=== PATIENT | male | born 1945 | race Asian ===

== ENCOUNTER 2017-02-05 13:35 | Inpatient (IN) | payer MEDICARE, OTHER ==
[~2017-02-05] VITALS: Ht 177.8 cm; Wt 56.7 kg
--- NOTE | 2017-02-05 13:35 | Emergency Room Report ---
History of Present Illness General Chief Complaint: Generalized Weakness Source: EMS Present Illness HPI Is a 71-year-old male who presented after increased generalized weakness. She gradual onset of symptoms. Patient reportedly had decreased by mouth intake. Patient prior history of cancer. Patient brought in by EMS from home. 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 The patient recent finished of round of chemotherapy. Patient was a having had decreased oral intake as well as some bleeding from his mouth. He had not been reportedly having any fever. Cancer have been noted to be metastasized to his bone. He is not known to have any liver metastases. The patient had last been hospitalized for [facility]. The patient had reported having decreased urine output Allergies: Coded Allergies: No Known Allergies (Unverified , 02/05/17) Patient History Past Medical History: see triage record Reviewed Nursing Documentation: PMH: Agreed, PSxH: Agreed Nursing Documentation-PMH Past Medical History: No History, Except For Hx Hypertension: Yes Hx COPD: No - ANEMIA Hx Cancer: Yes Review of Systems All Other Systems: negative except mentioned in HPI Physical Exam Vital Signs Date Time Temp Pulse Resp B/P (MAP) Pulse Ox O2 Delivery O2 Flow Rate FiO2 02/05/17 13:21 100.9 89 20 105/53 100 Room Air Sp02 EP Interpretation: reviewed, normal General Appearance: normal inspection, well appearing, no apparent distress, alert, Chronically Ill Head: atraumatic ENT: hearing grossly normal, normal voice, other - mouth ulcers, mass to right side of oropharynx. 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 Differential diagnosis included was not limited to anemia, urinary tract infection, electrolyte abnormality, hypothyroidism, myocardial infarction, myasthenia gravis, dehydration, among others. Because of complexity of patient's case laboratory testing and imaging studies were ordered.Laboratory testing showed evidence of elevation of BUN/ creatinine. This was noted also be somewhat anemic. The patient was having some mild bleeding from oropharynx. The patient will require further checks of his blood count as well as a further IV hydration. Dr. Mahajan was contacted for inpatient management due to complexity of medical condition and capitated physician. Labs Test 02/05/17 13:50 02/05/17 14:10 Urine Color Pale yellow Urine Appearance Clear Urine pH 7 (4.5-8.0) Urine Specific [place] 1.005 (1.005-1.035) Urine Protein Negative (NEGATIVE) Urine Glucose (UA) Negative (NEGATIVE) Urine Ketones Negative (NEGATIVE) Urine Occult Blood Negative (NEGATIVE) Urine Nitrite Negative (NEGATIVE) Urine Bilirubin Negative (NEGATIVE) Urine Urobilinogen Normal MG/DL (0.0-1.0) Urine Leukocyte Esterase Negative (NEGATIVE) White Blood Count 6.3 K/UL (4.8-10.8) Red Blood Count 3.23 M/UL (4.70-6.10) Hemoglobin 9.5 G/DL (14.2-18.0) Hematocrit 29.3 % (42.0-52.0) Mean Corpuscular Volume 91 FL (80-99) Mean Corpuscular Hemoglobin 29.5 PG (27.0-31.0) Mean Corpuscular Hemoglobin Concent 32.5 G/DL (32.0-36.0) Red Cell Distribution Width 16.9 % (11.6-14.8) Platelet Count 237 K/UL (150-450) Mean Platelet Volume 6.4 FL (6.5-10.1) Neutrophils (%) (Auto) % (45.0-75.0) Lymphocytes (%) (Auto) % (20.0-45.0) Monocytes (%) (Auto) % (1.0-10.0) Eosinophils (%) (Auto) % (0.0-3.0) Basophils (%) (Auto) % (0.0-2.0) Differential Total Cells Counted 100 Neutrophils % (Manual) 82 % (45-75) Lymphocytes % (Manual) 5 % (20-45) Monocytes % (Manual) 5 % (1-10) Eosinophils % (Manual) 0 % (0-3) Basophils % (Manual) 0 % (0-2) Band Neutrophils 8 % (0-8) Platelet Estimate Adequate Platelet Morphology Normal Anisocytosis 1+ Prothrombin Time 10.1 SEC (9.30-11.50) Prothromb Time International Ratio 1.0 (0.9-1.1) Activated Partial Thromboplast Time 33 SEC (23-33) Sodium Level 132 MMOL/L (136-145) Potassium Level 4.8 MMOL/L (3.5-5.1) Chloride Level 101 MMOL/L (98-107) Carbon Dioxide Level 21 MMOL/L (21-32) Anion Gap 10 mmol/L (5-15) Blood Urea Nitrogen 25 mg/dL (7-18) Creatinine 1.0 MG/DL (0.55-1.30) Estimat Glomerular Filtration Rate mL/min (>60) Glucose Level 104 MG/DL (74-106) Lactic Acid Level 1.00 mmol/L (0.66-2.22) Calcium Level 7.3 MG/DL (8.5-10.1) Total Bilirubin 0.6 MG/DL (0.2-1.0) Aspartate Amino Transf (AST/SGOT) 26 U/L (15-37) Alanine Aminotransferase (ALT/SGPT) 12 U/L (12-78) Alkaline Phosphatase 149 U/L (46-116) Total Creatine Kinase 86 U/L (26-308) Creatine Kinase MB 1.1 NG/ML (0.0-3.6) Creatine Kinase MB Relative Index 1.2 Troponin I 0.011 ng/mL (0.000-0.056) Total Protein 7.8 G/DL (6.4-8.2) Albumin 2.8 G/DL (3.4-5.0) Globulin 5.0 g/dL EKG Diagnostic Results Rate: normal - 87 Rhythm: NSR ST Segments: no acute changes ASA given to the pt in ED: No Rhythm Strip Diag. Results EP Interpretation: yes Rhythm: NSR - 86, no PVC's, no ectopy Chest X-Ray Diagnostic Results Chest X-Ray Diagnostic Results : Chest X-Ray Ordered: Yes # of Views/Limited/Complete: 1 View Indication: Shortness of Breath EP Interpretation: Yes Interpretation: no effusion, no pneumothorax, no acute cardiopulmonary disease, other - right lung infiltrate Impression: Other - right lung infiltrate Electronically Signed by: Electronically signed by Dr. Juancho Miller M.D. Last Vital Signs Date Time Temp Pulse Resp B/P (MAP) Pulse Ox O2 Delivery O2 Flow Rate FiO2 02/05/17 13:21 100.9 89 20 105/53 100 Room Air Status: unchanged Disposition: ADMITTED INPATIENT Juancho Miller Feb 05, 2017 13:35
[2017-02-05] MEDS ORDERED: Lidocaine 2% Visc 15ml soln ORAL ONE (13:45)
[2017-02-05] MEDS ORDERED: DiphenhydrAMINE 25mg/10ml Elixir ORAL ONE (13:45)
[2017-02-05] MEDS ORDERED: Cefepime HCl 1 GM in NS 55 ML IV SCH (13:45)
[2017-02-05] MEDS ORDERED: LOSARTAN-HCTZ1 EACH ORAL (13:45)
[2017-02-05] MEDS ORDERED: MORPHINE IR15 MG ORAL (13:45)
[2017-02-05 13:50] VITALS: BP 105/52
[2017-02-05 14:34] LABS: MEAN CORPUSCULAR HEMOGLOBIN 29.5 PG (27.0-31.0); MEAN CORPUSCULAR HGB CONC 32.5 G/DL (32.0-36.0); MEAN CORPUSCULAR VOLUME 91 FL (80-99); MEAN PLATELET VOLUME 6.4 FL (6.5-10.1); PLATELET COUNT 237 K/UL (150-450); RED BLOOD COUNT 3.23 M/UL (4.70-6.10); RED CELL DISTRIBUTION WIDTH 16.9 % (11.6-14.8); WHITE BLOOD COUNT 6.3 K/UL (4.8-10.8)
[2017-02-05] MEDS ORDERED: Cefepime 1gm vial ONE (14:37)
[2017-02-05] MEDS ORDERED: LACTULOSE10 GM/153 PO (14:37)
[2017-02-05] MEDS ORDERED: HYDROCODON-ACE1 EA13 ORAL (14:37)
[2017-02-05] MEDS ORDERED: MOM30 ML ORAL (14:38)
[2017-02-05 14:51] LABS: PROTHROMBIN TIME 10.1 SEC (9.30-11.50)
[2017-02-05] MEDS ORDERED: IRON159 MG PO (14:54)
[2017-02-05] MEDS ORDERED: MILK OF MA400 MG/51 ORAL (14:54)
[2017-02-05] MEDS ORDERED: LD2JL30 TOPIC (14:54)
[2017-02-05] MEDS ORDERED: CALCIUM500 M3 PO (14:54)
[2017-02-05 15:02] LABS: ALANINE AMINOTRANSFERASE 12 U/L (12-78); ANION GAP 10 mmol/L (5-15); ASPARTATE AMINO TRANSFERASE 26 U/L (15-37); CARBON DIOXIDE 21 MMOL/L (21-32); CHLORIDE 101 MMOL/L (98-107); CKMB 1.1 NG/ML (0.0-3.6); POTASSIUM 4.8 MMOL/L (3.5-5.1); SODIUM 132 MMOL/L (136-145); TOTAL PROTEIN 7.8 G/DL (6.4-8.2)
[2017-02-05 15:09] LABS: CALCIUM 7.3 MG/DL (8.5-10.1)
[2017-02-05 15:37] LABS: APPEARANCE,URINE CLEAR; KETONES,URINE NEGATIVE (NEGATIVE); LEUKOCYTE ESTERASE ,URINE NEGATIVE (NEGATIVE); NITRITE,URINE NEGATIVE (NEGATIVE); PH,URINE 7 (4.5-8.0); PROTEIN,URINE NEGATIVE (NEGATIVE); UROBILINOGEN,URINE NORMAL MG/DL (0.0-1.0)
[2017-02-05 15:46] LABS: ANISOCYTOSIS 1+; BAND NEUTROPHILS % (MANUAL) 8 % (0-8); BASOPHILS % (MANUAL) 0 % (0-2); EOSINOPHILS % (MANUAL) 0 % (0-3); LYMPHOCYTES % (MANUAL) 5 % (20-45); NEUTROPHILS % (MANUAL) 82 % (45-75); PLATELET ESTIMATE ADEQUATE; PLATELET MORPHOLOGY NORMAL; TOTAL CELLS COUNTED 100
[2017-02-05 16:50] VITALS: BP 115/55
[2017-02-05] MEDS ORDERED: D5 1/2NS 1,000 ML IV SCH (17:36)
[2017-02-05] MEDS ORDERED: LORazepam Inj 2mg/ml 1ml IV PRN (17:45)
[2017-02-05] MEDS ORDERED: Morphine Sulfate 2mg/ml Inj IVP PRN (17:45)
[2017-02-05 20:00] VITALS: BP 97/53
[2017-02-05] MEDS: Heparin 5000 units/ml inj SUBQ SCH (20:34)
--- NOTE | 2017-02-05 22:13 | History and Physical ---
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 He just finished of round of chemotherapy. He also has decreased urine output. He had an episode of fever in Er and was noticed to have hyponatremia. He is admitted for further work up. Allergies: Coded Allergies: No Known Allergies (Unverified , 02/05/17) Medication History Scheduled Hydrocodone Bit/Acetaminophen 10-325* (Hydrocodon-Acetaminophn 10-325*), 1 TAB ORAL Q6H, (Reported) Lidocaine HCL 2% Jelly* (Lidocaine Jelly 2%*), 5 ML TOPIC DAILY, (Reported) Losartan/Hydrochlorothiazide (Losartan-Hctz 100-12.5 Mg Tab), 1 TAB ORAL DAILY, (Reported) Magnesium Hydroxide (Milk of Magnesia), 30 ML ORAL DAILY, (Reported) Magnesium Hydroxide* (Milk Of Magnesia*), 30 ML ORAL DAILY, (Reported) Scheduled PRN Morphine HCl (Morphine Sulfate ER), 30 MG ORAL Q6H PRN for For Pain, (Reported) Miscellaneous Medications Calcium Carbonate (Calcium), 500 MG PO, (Reported) Ferrous Sulfate, Dried (Iron), 159 MG PO, (Reported) Lactulose (Lactulose), 10 GM PO, (Reported) Patient History Healthcare decision maker N Resuscitation status Advanced Directive on File Past Medical/Surgical History Past Medical/Surgical History: (1) Metastatic cancer (2) History of hypertension Review of Systems Constitutional: Reports: fever, malaise Physical Exam General Appearance: cachetic Lines, tubes and drains: peripheral HEENT: normocephalic, atraumatic Neck: non-tender, normal alignment Respiratory/Chest: chest wall non-tender Breasts: no masses Abdomen: normal bowel sounds Genitourinary/Rectal: normal genital exam, normal prostate exam Last 24 Hour Vital Signs Date Time Temp Pulse Resp B/P (MAP) Pulse Ox O2 Delivery O2 Flow Rate FiO2 02/05/17 20:00 90 02/05/17 20:00 99.7 91 18 97/53 97 Room Air 02/05/17 17:10 99.3 88 18 115/55 100 Room Air 02/05/17 16:50 88 18 115/55 100 Room Air 02/05/17 13:50 99.3 89 18 105/52 100 Room Air 02/05/17 13:21 100.9 89 20 105/53 100 Room Air Intake and Output 02/05/17 02/06/17 19:00 07:00 Intake Total 405 ml 100 ml Output Total 300 ml Balance 105 ml 100 ml Intake Oral 200 ml IV Total 205 ml 100 ml Output Urine Total 300 ml Laboratory Tests Test 02/05/17 13:50 02/05/17 14:10 Urine Color Pale yellow Urine Appearance Clear Urine pH 7 (4.5-8.0) Urine Specific [place] 1.005 (1.005-1.035) Urine Protein Negative (NEGATIVE) Urine Glucose (UA) Negative (NEGATIVE) Urine Ketones Negative (NEGATIVE) Urine Occult Blood Negative (NEGATIVE) Urine Nitrite Negative (NEGATIVE) Urine Bilirubin Negative (NEGATIVE) Urine Urobilinogen Normal MG/DL (0.0-1.0) Urine Leukocyte Esterase Negative (NEGATIVE) White Blood Count 6.3 K/UL (4.8-10.8) Red Blood Count 3.23 M/UL (4.70-6.10) L Hemoglobin 9.5 G/DL (14.2-18.0) L Hematocrit 29.3 % (42.0-52.0) L Mean Corpuscular Volume 91 FL (80-99) Mean Corpuscular Hemoglobin 29.5 PG (27.0-31.0) Mean Corpuscular Hemoglobin Concent 32.5 G/DL (32.0-36.0) Red Cell Distribution Width 16.9 % (11.6-14.8) H Platelet Count 237 K/UL (150-450) Mean Platelet Volume 6.4 FL (6.5-10.1) L Neutrophils (%) (Auto) % (45.0-75.0) Lymphocytes (%) (Auto) % (20.0-45.0) Monocytes (%) (Auto) % (1.0-10.0) Eosinophils (%) (Auto) % (0.0-3.0) Basophils (%) (Auto) % (0.0-2.0) Differential Total Cells Counted 100 Neutrophils % (Manual) 82 % (45-75) H Lymphocytes % (Manual) 5 % (20-45) L Monocytes % (Manual) 5 % (1-10) Eosinophils % (Manual) 0 % (0-3) Basophils % (Manual) 0 % (0-2) Band Neutrophils 8 % (0-8) Platelet Estimate Adequate Platelet Morphology Normal Anisocytosis 1+ Prothrombin Time 10.1 SEC (9.30-11.50) Prothromb Time International Ratio 1.0 (0.9-1.1) Activated Partial Thromboplast Time 33 SEC (23-33) Sodium Level 132 MMOL/L (136-145) L Potassium Level 4.8 MMOL/L (3.5-5.1) Chloride Level 101 MMOL/L (98-107) Carbon Dioxide Level 21 MMOL/L (21-32) Anion Gap 10 mmol/L (5-15) Blood Urea Nitrogen 25 mg/dL (7-18) H Creatinine 1.0 MG/DL (0.55-1.30) Estimat Glomerular Filtration Rate mL/min (>60) Glucose Level 104 MG/DL (74-106) Lactic Acid Level 1.00 mmol/L (0.66-2.22) Calcium Level 7.3 MG/DL (8.5-10.1) L Total Bilirubin 0.6 MG/DL (0.2-1.0) Aspartate Amino Transf (AST/SGOT) 26 U/L (15-37) Alanine Aminotransferase (ALT/SGPT) 12 U/L (12-78) Alkaline Phosphatase 149 U/L (46-116) H Total Creatine Kinase 86 U/L (26-308) Creatine Kinase MB 1.1 NG/ML (0.0-3.6) Creatine Kinase MB Relative Index 1.2 Troponin I 0.011 ng/mL (0.000-0.056) Total Protein 7.8 G/DL (6.4-8.2) Albumin 2.8 G/DL (3.4-5.0) L Globulin 5.0 g/dL Height (Feet): 5 Height (Inches): 10.00 Weight (Pounds): 125 Medications Current Medications Medications (Trade) Dose Ordered Sig/Christopher Route PRN Reason Start Time Stop Time Status Last Admin Dose Admin Dextrose (Dextrose 50%) STAT PRN IV Hypoglycemia 02/05/17 17:45 03/07/17 17:44 Dextrose/Sodium Chloride 1,000 ml @ 50 mls/hr Q20H IV 02/05/17 17:36 03/07/17 17:35 02/05/17 17:36 Heparin Sodium (Porcine) (Heparin 5000 units/ml) 5,000 units EVERY 12 HOURS SUBQ 02/05/17 21:00 03/07/17 20:59 02/05/17 20:34 Lorazepam (Ativan 2mg/ml 1ml) 0.5 mg Q4H PRN IV For Anxiety 02/05/17 17:45 02/12/17 17:44 Morphine Sulfate (Morphine Sulfate) 1 mg Q4H PRN IVP PAIN 4-10 02/05/17 17:45 02/12/17 17:44 Ondansetron HCl (Zofran) 4 mg Q6H PRN IVP Nausea & Vomiting 02/05/17 17:45 03/07/17 17:44 Assessment/Plan Problem List: (1) Fever ICD Codes: R50.9 - Fever, unspecified SNOMED: 344183021 (2) Hyponatremia ICD Codes: E87.1 - Hypo-osmolality and hyponatremia SNOMED: 76840622 (3) Protein-calorie malnutrition, severe ICD Codes: E43 - Unspecified severe protein-calorie malnutrition SNOMED: 599291788 (4) Metastatic cancer ICD Codes: C79.9 - Secondary malignant neoplasm of unspecified site SNOMED: 510631059 (5) History of hypertension ICD Codes: Z86.79 - Personal history of other diseases of the circulatory system SNOMED: 123504701 Assessment/Plan hill culture Id evaluation symptomatic treatment calorie count swallow evaluation social service evaluation AALIYAH SANCHEZ Feb 05, 2017 22:13
[2017-02-06 08:00] VITALS: BP 122/56
[2017-02-06 08:14] LABS: MEAN CORPUSCULAR HGB CONC 31.9 G/DL (32.0-36.0); MEAN CORPUSCULAR VOLUME 91 FL (80-99); PLATELET COUNT 226 K/UL (150-450); RED BLOOD COUNT 2.95 M/UL (4.70-6.10); RED CELL DISTRIBUTION WIDTH 16.2 % (11.6-14.8); WHITE BLOOD COUNT 3.7 K/UL (4.8-10.8)
[2017-02-06] MEDS: Heparin 5000 units/ml inj SUBQ SCH (08:35)
[2017-02-06 08:51] LABS: ALANINE AMINOTRANSFERASE 12 U/L (12-78); ALBUMIN/GLOBULIN RATIO 0.5 (1.0-2.7); ANION GAP 8 mmol/L (5-15); ASPARTATE AMINO TRANSFERASE 13 U/L (15-37); CALCIUM 6.7 MG/DL (8.5-10.1); CARBON DIOXIDE 19 MMOL/L (21-32); CHLORIDE 103 MMOL/L (98-107); CREATININE 0.8 MG/DL (0.55-1.30); SODIUM 130 MMOL/L (136-145); TOTAL PROTEIN 6.8 G/DL (6.4-8.2)
[2017-02-06 09:36] LABS: ANISOCYTOSIS 1+; BAND NEUTROPHILS % (MANUAL) 2 % (0-8); BASOPHILS % (MANUAL) 0 % (0-2); EOSINOPHILS % (MANUAL) 1 % (0-3); HYPOCHROMASIA 2+; LYMPHOCYTES % (MANUAL) 14 % (20-45); NEUTROPHILS % (MANUAL) 80 % (45-75); PLATELET ESTIMATE ADEQUATE; PLATELET MORPHOLOGY NORMAL; TOTAL CELLS COUNTED 100
--- NOTE | 2017-02-06 10:15 | Pulmonology Progress Note ---
Assessment/Plan Problems: (1) Fever (2) Hyponatremia (3) Protein-calorie malnutrition, severe (4) Metastatic cancer (5) History of hypertension Assessment/Plan f/u on cultures swallow study calorie count pt/ ot social servie. Subjective ROS Limited/Unobtainable: No Interval Events: doing better, afebrile, awake Constitutional: Reports: no symptoms HEENT: Repors: no symptoms Allergies: Coded Allergies: No Known Allergies (Unverified , 02/05/17) Objective Last 24 Hour Vital Signs Date Time Temp Pulse Resp B/P (MAP) Pulse Ox O2 Delivery O2 Flow Rate FiO2 02/06/17 08:00 97.2 87 20 122/56 99 Room Air 02/06/17 04:00 82 02/06/17 00:00 81 02/05/17 20:00 90 02/05/17 20:00 99.7 91 18 97/53 97 Room Air 02/05/17 17:10 99.3 88 18 115/55 100 Room Air 02/05/17 16:50 88 18 115/55 100 Room Air 02/05/17 13:50 99.3 89 18 105/52 100 Room Air 02/05/17 13:21 100.9 89 20 105/53 100 Room Air General Appearance: WD/WN, cachetic HEENT: normocephalic, atraumatic Respiratory/Chest: chest wall non-tender, normal breath sounds Cardiovascular: normal peripheral pulses, normal rate Abdomen: normal bowel sounds, soft, non tender Genitourinary: normal external genitalia Skin: no rash 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, no motor/sensory deficits Laboratory Tests 02/05/17 13:50: Urine Color Pale yellow, Urine Appearance Clear, Urine pH 7, Urine Specific [place] 1.005, Urine Protein Negative, Urine Glucose (UA) Negative, Urine Ketones Negative, Urine Occult Blood Negative, Urine Nitrite Negative, Urine Bilirubin Negative, Urine Urobilinogen Normal, Urine Leukocyte Esterase Negative 02/05/17 14:10: White Blood Count 6.3, Red Blood Count 3.23L, Hemoglobin 9.5L, Hematocrit 29.3L , Mean Corpuscular Volume 91, Mean Corpuscular Hemoglobin 29.5, Mean Corpuscular Hemoglobin Concent 32.5, Red Cell Distribution Width 16.9H, Platelet Count 237, Mean Platelet Volume 6.4L, Neutrophils (%) (Auto) , Lymphocytes (%) (Auto) , Monocytes (%) (Auto) , Eosinophils (%) (Auto) , Basophils (%) (Auto) , Differential Total Cells Counted 100, Neutrophils % ( Manual) 82H, Lymphocytes % (Manual) 5L, Monocytes % (Manual) 5, Eosinophils % ( Manual) 0, Basophils % (Manual) 0, Band Neutrophils 8, Platelet Estimate Adequate, Platelet Morphology Normal, Anisocytosis 1+, Prothrombin Time 10.1, Prothromb Time International Ratio 1.0, Activated Partial Thromboplast Time 33, Sodium Level 132L, Potassium Level 4.8, Chloride Level 101, Carbon Dioxide Level 21, Anion Gap 10, Blood Urea Nitrogen 25H, Creatinine 1.0, Estimat Glomerular Filtration Rate , Glucose Level 104, Lactic Acid Level 1.00, Calcium Level 7.3L, Total Bilirubin 0.6, Aspartate Amino Transf (AST/SGOT) 26, Alanine Aminotransferase (ALT/SGPT) 12, Alkaline Phosphatase 149H, Total Creatine Kinase 86, Creatine Kinase MB 1.1, Creatine Kinase MB Relative Index 1.2, Troponin I 0.011, Total Protein 7.8, Albumin 2.8L, Globulin 5.0 02/06/17 07:20: White Blood Count 3.7L, Red Blood Count 2.95L, Hemoglobin 8.6L, Hematocrit 26.8L , Mean Corpuscular Volume 91, Mean Corpuscular Hemoglobin 29.0, Mean Corpuscular Hemoglobin Concent 31.9L, Red Cell Distribution Width 16.2H, Platelet Count 226, Mean Platelet Volume 6.0L, Neutrophils (%) (Auto) , Lymphocytes (%) (Auto) , Monocytes (%) (Auto) , Eosinophils (%) (Auto) , Basophils (%) (Auto) , Differential Total Cells Counted 100, Neutrophils % ( Manual) 80H, Lymphocytes % (Manual) 14L, Monocytes % (Manual) 3, Eosinophils % ( Manual) 1, Basophils % (Manual) 0, Band Neutrophils 2, Platelet Estimate Adequate, Platelet Morphology Normal, Anisocytosis 1+, Sodium Level 130L, Potassium Level 4.0, Chloride Level 103, Carbon Dioxide Level 19L, Anion Gap 8, Blood Urea Nitrogen 13, Creatinine 0.8, Estimat Glomerular Filtration Rate , Glucose Level 101, Calcium Level 6.7L, Total Bilirubin 0.4, Aspartate Amino Transf (AST/SGOT) 13L, Alanine Aminotransferase (ALT/SGPT) 12, Alkaline Phosphatase 134H, Total Protein 6.8, Albumin 2.4L, Globulin 4.4, Hypochromasia 2 +, Albumin/Globulin Ratio 0.5L 02/06/17 08:03: Osmolality [Pending], Uric Acid [Pending], Thyroid Stimulating Hormone (TSH) [ Pending], Free Thyroxine [Pending], Free Triiodothyronine [Pending], Cortisol [ Pending] Current Medications Medications (Trade) Dose Ordered Sig/Christopher Route PRN Reason Start Time Stop Time Status Last Admin Dose Admin Dextrose (Dextrose 50%) STAT PRN IV Hypoglycemia 02/05/17 17:45 03/07/17 17:44 Dextrose/Sodium Chloride 1,000 ml @ 50 mls/hr Q20H IV 02/05/17 17:36 03/07/17 17:35 02/05/17 17:36 Heparin Sodium (Porcine) (Heparin 5000 units/ml) 5,000 units EVERY 12 HOURS SUBQ 02/05/17 21:00 03/07/17 20:59 02/06/17 08:35 Lorazepam (Ativan 2mg/ml 1ml) 0.5 mg Q4H PRN IV For Anxiety 02/05/17 17:45 02/12/17 17:44 Morphine Sulfate (Morphine Sulfate) 1 mg Q4H PRN IVP PAIN 4-10 02/05/17 17:45 02/12/17 17:44 Ondansetron HCl (Zofran) 4 mg Q6H PRN IVP Nausea & Vomiting 02/05/17 17:45 03/07/17 17:44 AALIYAH SANCHEZ Feb 06, 2017 10:15
[2017-02-06 10:35] LABS: FREE T3 1.4 pg/mL (2.3-4.2); THYROID STIMULATING HORMONE 1.688 uiU/mL (0.358-3.740); URIC ACID 5.4 MG/DL (2.6-7.2)
--- NOTE | 2017-02-06 10:51 | Diagnostic Imaging Report ---
Indication: Shortness of breath Technique: XRAY CHEST 1 V Comparison: None Findings: Cardiac silhouette is prominent. There is no consolidation, pneumothorax or pleural effusion. Degenerative changes of the spine are seen. Atherosclerotic changes are present. Impression: No acute cardiopulmonary disease.
[2017-02-06] MEDS: D5NS 1,000 ML IV SCH (11:19)
[2017-02-06] MEDS ORDERED: Cefepime HCl 1 GM in D5W 55 ML IVPB SCH (11:30)
[2017-02-06] MEDS ORDERED: Vancomycin 1250mg/D5W 250ml IVPB ONE (11:30)
[2017-02-06 12:00] VITALS: BP 100/60
[2017-02-06 16:00] VITALS: BP 114/62
[2017-02-06] MEDS: Docusate 100mg cap ORAL SCH (17:10)
--- NOTE | 2017-02-06 17:21 | Consultation ---
Consult Note Consult Note [facility] # [id number] FLEIX MORGAN M.D. Feb 06, 2017 17:21
[2017-02-06 19:43] VITALS: BP 139/75
[2017-02-06 20:55] LABS: APPEARANCE,URINE CLEAR; KETONES,URINE NEGATIVE (NEGATIVE); LEUKOCYTE ESTERASE ,URINE NEGATIVE (NEGATIVE); NITRITE,URINE NEGATIVE (NEGATIVE); PH,URINE 6 (4.5-8.0); PROTEIN,URINE 1+ (NEGATIVE); UROBILINOGEN,URINE NORMAL MG/DL (0.0-1.0)
[2017-02-06 21:02] LABS: RBC,URINE 0-2 /HPF (0 - 0); WBC,URINE 0-2 /HPF (0 - 0)
[2017-02-06] MEDS: Piperacillin/Tazobactam 3.375 GM in D5W 55 ML IVPB SCH (21:06)
--- NOTE | 2017-02-06 23:15 | Consultation ---
DATE OF CONSULTATION: 01/06/2017 INFECTIOUS DISEASES CONSULTATION CONSULTING PHYSICIAN: Lew Carmen M.D. REQUESTING PHYSICIAN: Sanju Mahajan M.D. REASON FOR CONSULTATION: Evaluation of the patient for fever and antibiotic management. HISTORY OF PRESENT ILLNESS: The patient is a 71-year-old male with multiple medical problems as listed below, who was admitted to this medical center due to sore throat and the patient was found to have fever. Infectious Disease consultation has been requested for further evaluation of the patient and antibiotic management. The patient has a history of nasopharyngeal carcinoma with mets to his bones. The patient is on the chemo. PAST MEDICAL HISTORY: 1. Hypertension. 2. COPD. 3. Nasopharyngeal cancer. 4. History of smoking. ALLERGIES: No known drug allergies. MEDICATIONS: IV vancomycin and cefepime. SOCIAL HISTORY: As mentioned. FAMILY HISTORY: Noncontributory. REVIEW OF SYSTEMS: HEENT: As mentioned above. The patient has sore throat with spitting blood when he clears his throat. PULMONARY: No significant cough. CARDIOVASCULAR: No chest pain or palpitation. GASTROINTESTINAL/ABDOMEN: No nausea or vomiting. GENITOURINARY: No dysuria. MUSCULOSKELETAL: No pain in extremity. PHYSICAL EXAMINATION: VITAL SIGNS: Temperature 98, blood pressure 114/68, pulse 81, respiratory rate 18, and T-max 100.1. HEENT: No pale conjunctivae. No icterus. NECK: No lymphadenopathy. The patient has some induration and tenderness over the right side of the throat. Mouth, no thrush. CHEST: Clear. HEART: S1 and S2. ABDOMEN: Soft. EXTREMITIES: No cyanosis. NEUROLOGIC: Awake. LABORATORY DATA: White blood cells 2.7, hemoglobin 8.6, and platelets 226. UA unremarkable. BUN 13 and creatinine 0.8. ALT and AST are unremarkable. Alkaline phosphatase 134. Chest x-ray, [facility]. ASSESSMENT AND PLAN: 1. Sore throat, most likely due to nasopharyngeal cancer, on chemotherapy. 2. Fever, possible due to Zosyn. 3. Monitor CBC. 4. Monitor BMP. 5. Monitor vital signs. 6. The patient may benefit from Ear, Nose, and Throat evaluation. 7. Based on the patient's clinical course and labs, we will do further recommendation. Thank you, Dr. Mahajan, for allowing me to participate in the care of this patient. I will follow the patient with you during this hospitalization. Lew Carmen M.D. DR: UVALDO JOB#: [id number] CC:
[2017-02-06 23:30] VITALS: BP 130/71
[2017-02-06 23:39] VITALS: BP_SYST 130; BP_SYST 136; BP_DIAS 67; BP_DIAS 71
[2017-02-07] MEDS: D5NS 1,000 ML IV SCH ×3 (00:44→21:00)
[2017-02-07 06:31] LABS: MEAN CORPUSCULAR HGB CONC 32.3 G/DL (32.0-36.0); MEAN CORPUSCULAR VOLUME 90 FL (80-99); MEAN PLATELET VOLUME 5.5 FL (6.5-10.1); PLATELET COUNT 240 K/UL (150-450); RED BLOOD COUNT 2.91 M/UL (4.70-6.10); RED CELL DISTRIBUTION WIDTH 16.2 % (11.6-14.8)
[2017-02-07 06:35] LABS: WHITE BLOOD COUNT 1.6 K/UL (4.8-10.8)
[2017-02-07 06:41] LABS: PROTHROMBIN TIME 10.1 SEC (9.30-11.50)
[2017-02-07] MEDS: Piperacillin/Tazobactam 3.375 GM in D5W 55 ML IVPB SCH ×3 (06:42→21:48)
[2017-02-07 06:46] LABS: LACTATE DEHYDROGENASE 203 U/L (81-234)
[2017-02-07 07:42] LABS: FOLIC ACID 12.3 NG/ML (3.1-17.5); IRON 25 ug/dL (50-175); TOTAL IRON BINDING CAPACITY 126 ug/dL (250-450)
[2017-02-07] MEDS: Docusate 100mg cap ORAL SCH ×3 (08:19→17:34)
[2017-02-07 08:33] VITALS: BP 104/60
[2017-02-07] MEDS ORDERED: Miralax 17gm pkt ORAL SCH (09:00)
[2017-02-07 09:05] LABS: ERYTHROCYTE SEDIMENTATION RATE 124 MM/HR (0-20)
[2017-02-07 09:12] LABS: ANISOCYTOSIS 1+; BAND NEUTROPHILS % (MANUAL) 5 % (0-8); BASOPHILS % (MANUAL) 0 % (0-2); EOSINOPHILS % (MANUAL) 1 % (0-3); LYMPHOCYTES % (MANUAL) 32 % (20-45); NEUTROPHILS % (MANUAL) 51 % (45-75); PLATELET ESTIMATE ADEQUATE; PLATELET MORPHOLOGY NORMAL; TOTAL CELLS COUNTED 100
[2017-02-07 09:24] LABS: PATH BLOOD SMEAR/OMC SEND TO PATHOLOGIST
[2017-02-07 09:25] LABS: RETICULOCYTE COUNT 0.2 % (0.0-2.0)
[2017-02-07] MEDS ORDERED: Vancomycin 1gm in D5W 275ml IVPB SCH (11:00)
--- NOTE | 2017-02-07 11:21 | Consultation ---
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 (5) History of hypertension (6) COPD. (7) History of smoking. Plan: Check Clem U Os Uric acid New lytes TSH Lipid panel HEATHER YU Feb 07, 2017 11:21
[2017-02-07 11:42] LABS: ANION GAP 10 mmol/L (5-15); CARBON DIOXIDE 19 MMOL/L (21-32); CHLORIDE 104 MMOL/L (98-107); CREATININE 0.8 MG/DL (0.55-1.30); POTASSIUM 3.7 MMOL/L (3.5-5.1); SODIUM 133 MMOL/L (136-145)
[2017-02-07] MEDS ORDERED: Chloraseptic Spray 20mL Bottle ORAL PRN (12:15)
[2017-02-07 12:16] LABS: ALANINE AMINOTRANSFERASE 13 U/L (12-78); ALBUMIN/GLOBULIN RATIO 0.6 (1.0-2.7); ASPARTATE AMINO TRANSFERASE 12 U/L (15-37); FERRITIN 1478 NG/ML (8-388); MAGNESIUM 2.5 MG/DL (1.8-2.4); PHOSPHORUS 1.4 MG/DL (2.5-4.9); TOTAL PROTEIN 6.7 G/DL (6.4-8.2); URIC ACID 4.1 MG/DL (2.6-7.2)
--- NOTE | 2017-02-07 12:23 | Pulmonology Progress Note ---
Assessment/Plan Problems: (1) Fever (2) Hyponatremia (3) Protein-calorie malnutrition, severe (4) Metastatic cancer (5) History of hypertension Assessment/Plan f/u on cultures swallow study calorie count pt/ ot social service reverse isolation f/u ID recommendation symptomatic treatment Subjective ROS Limited/Unobtainable: No Interval Events: comfortable Allergies: Coded Allergies: No Known Allergies (Unverified , 02/05/17) Objective Last 24 Hour Vital Signs Date Time Temp Pulse Resp B/P (MAP) Pulse Ox O2 Delivery O2 Flow Rate FiO2 02/07/17 08:33 97.9 81 18 104/60 100 02/07/17 08:00 77 02/07/17 04:00 72 02/07/17 00:00 86 02/06/17 23:39 98.4 62 16 130/71 97 Nasal Cannula 02/06/17 23:30 100.0 82 20 130/71 100 Room Air 02/06/17 20:00 83 02/06/17 19:43 98.2 85 20 139/75 97 Room Air 02/06/17 16:00 98.2 81 20 114/62 95 Room Air 02/06/17 16:00 88 Intake and Output 02/07/17 02/08/17 19:00 07:00 Intake Total 352.00 ml Balance 352.00 ml IV Total 352.00 ml # Voids 1 Objective General Appearance: cachetic Lines, tubes and drains: peripheral HEENT: normocephalic, atraumatic Neck: non-tender, normal alignment Respiratory/Chest: chest wall non-tender, lungs clear Cardiovascular/Chest: normal peripheral pulses, regular rhythm, no gallop/ murmur Abdomen: normal bowel sounds, non tender Genitourinary/Rectal: normal genital exam Extremities: normal range of motion, non-tender Microbiology Date/Time Source Procedure Growth Status 02/05/17 14:10 Blood Blood Culture - Preliminary NO GROWTH AFTER 24 HOURS Resulted 02/05/17 14:05 Blood Blood Culture - Preliminary NO GROWTH AFTER 24 HOURS Resulted Laboratory Tests 02/06/17 19:43: Urine Color Pale yellow, Urine Appearance Clear, Urine pH 6, Urine Specific [place] 1.015, Urine Protein 1+H, Urine Glucose (UA) Negative, Urine Ketones Negative, Urine Occult Blood 1+H, Urine Nitrite Negative, Urine Bilirubin Negative, Urine Urobilinogen Normal, Urine Leukocyte Esterase Negative, Urine RBC 0-2H, Urine WBC 0-2, Urine Squamous Epithelial Cells None, Urine Bacteria None, Urine Osmolality 567H, Urine Random Sodium 97 02/07/17 05:20: White Blood Count 1.6#*L, Red Blood Count 2.91L, Hemoglobin 8.4L, Hematocrit 26.2L, Mean Corpuscular Volume 90, Mean Corpuscular Hemoglobin 29.0, Mean Corpuscular Hemoglobin Concent 32.3, Red Cell Distribution Width 16.2H, Platelet Count 240, Mean Platelet Volume 5.5L, Neutrophils (%) (Auto) , Lymphocytes (%) (Auto) , Monocytes (%) (Auto) , Eosinophils (%) (Auto) , Basophils (%) (Auto) , Differential Total Cells Counted 100, Neutrophils % ( Manual) 51, Lymphocytes % (Manual) 32, Monocytes % (Manual) 11H, Eosinophils % ( Manual) 1, Basophils % (Manual) 0, Band Neutrophils 5, Platelet Estimate Adequate, Platelet Morphology Normal, Anisocytosis 1+, Erythrocyte Sedimentation Rate 124H, Reticulocyte Count 0.2, Prothrombin Time 10.1, Prothromb Time International Ratio 1.0, Activated Partial Thromboplast Time 36H , Sodium Level 133L, Potassium Level 3.7, Chloride Level 104, Carbon Dioxide Level 19L, Anion Gap 10, Blood Urea Nitrogen 10, Creatinine 0.8, Estimat Glomerular Filtration Rate , Glucose Level 105, Uric Acid 4.1, Calcium Level 7.0L, Phosphorus Level 1.4L, Magnesium Level 2.5H, Iron Level 25L, Total Iron Binding Capacity 126L, Percent Iron Saturation 20, Unsaturated Iron Binding 101L , Ferritin 1478H, Total Bilirubin 0.4, Aspartate Amino Transf (AST/SGOT) 12L, Alanine Aminotransferase (ALT/SGPT) 13, Alkaline Phosphatase 130H, Lactate Dehydrogenase 203, Total Protein 6.7, Albumin 2.4L, Globulin 4.3, Albumin/ Globulin Ratio 0.6L, Vitamin B12 Level > 2000H, Folate 12.3 Current Medications Medications (Trade) Dose Ordered Sig/Christopher Route PRN Reason Start Time Stop Time Status Last Admin Dose Admin Dextrose (Dextrose 50%) STAT PRN IV Hypoglycemia 02/05/17 17:45 03/07/17 17:44 Dextrose/Sodium Chloride 1,000 ml @ 75 mls/hr [id number] IV 02/06/17 11:00 03/08/17 10:59 02/07/17 00:44 Docusate Sodium (Colace) 100 mg THREE TIMES A DAY ORAL 02/06/17 18:00 03/08/17 17:59 02/07/17 08:19 Lorazepam (Ativan 2mg/ml 1ml) 0.5 mg Q4H PRN IV For Anxiety 02/05/17 17:45 02/12/17 17:44 Morphine Sulfate (Morphine Sulfate) 1 mg Q4H PRN IVP PAIN 4-10 02/05/17 17:45 02/12/17 17:44 02/06/17 12:53 Ondansetron HCl (Zofran) 4 mg Q6H PRN IVP Nausea & Vomiting 02/05/17 17:45 03/07/17 17:44 Phenol/Menthol (Chloraseptic) 1 spray Q4H PRN ORAL mouth soreness and pain 02/07/17 12:15 03/09/17 12:14 Piperacillin Sod/ Tazobactam Sod 3.375 gm/Dextrose 55 ml @ 13.75 mls/ hr EVERY 8 HOURS IVPB 02/06/17 20:00 02/11/17 19:59 02/07/17 06:42 Polyethylene Glycol (Miralax) 17 gm DAILY ORAL 02/07/17 09:00 03/09/17 08:59 02/07/17 08:19 AALIYAH SANCHEZ Feb 07, 2017 12:23
[2017-02-07 12:30] VITALS: BP 127/68
--- NOTE | 2017-02-07 15:35 | Cardiology Report ---
APPROVED REPORT EKG Measurement Heart [id number] Normal sinus rhythm Normal ECG
[2017-02-07] MEDS ORDERED: Tubing IV Secondary IV ONE (16:05)
[2017-02-07] MEDS ORDERED: D5NS 1000ml IV ONE (16:05)
[2017-02-07] MEDS ORDERED: D5 1/2NS 1000ml IV ONE (16:05)
[2017-02-07] MEDS ORDERED: NS 500ML ONE (16:05)
[2017-02-07 16:12] VITALS: BP 124/66
[2017-02-07 20:00] VITALS: BP 115/69
[2017-02-07] MEDS ORDERED: Morphine Sulfate 2mg/ml Inj IVP PRN (21:45)
[2017-02-07] MEDS ORDERED: LORazepam Inj 2mg/ml 1ml IV PRN (21:45)
[2017-02-07] MEDS: Chloraseptic Spray 20mL Bottle ORAL PRN (21:49)
[2017-02-08] MEDS: Piperacillin/Tazobactam 3.375 GM in D5W 55 ML IVPB SCH ×3 (06:30→21:10)
[2017-02-08] MEDS: Chloraseptic Spray 20mL Bottle ORAL PRN ×2 (06:39→16:49)
[2017-02-08 07:25] LABS: MEAN CORPUSCULAR HEMOGLOBIN 29.6 PG (27.0-31.0); MEAN CORPUSCULAR HGB CONC 32.8 G/DL (32.0-36.0); MEAN CORPUSCULAR VOLUME 90 FL (80-99); MEAN PLATELET VOLUME 5.4 FL (6.5-10.1); PLATELET COUNT 233 K/UL (150-450); RED BLOOD COUNT 2.87 M/UL (4.70-6.10); RED CELL DISTRIBUTION WIDTH 16.3 % (11.6-14.8)
[2017-02-08 07:37] LABS: ANION GAP 10 mmol/L (5-15); CARBON DIOXIDE 18 MMOL/L (21-32); CHLORIDE 108 MMOL/L (98-107); POTASSIUM 3.5 MMOL/L (3.5-5.1); SODIUM 136 MMOL/L (136-145)
[2017-02-08 07:38] LABS: ALANINE AMINOTRANSFERASE 10 U/L (12-78); ALBUMIN/GLOBULIN RATIO 0.5 (1.0-2.7); ASPARTATE AMINO TRANSFERASE 12 U/L (15-37); CALCIUM 6.7 MG/DL (8.5-10.1); CREATININE 0.8 MG/DL (0.55-1.30); MAGNESIUM 2.2 MG/DL (1.8-2.4); PHOSPHORUS 1.2 MG/DL (2.5-4.9); TOTAL PROTEIN 6.5 G/DL (6.4-8.2)
[2017-02-08 08:00] VITALS: BP 133/71
[2017-02-08 08:16] LABS: ANISOCYTOSIS 1+; BAND NEUTROPHILS % (MANUAL) 0 % (0-8); BASOPHILS % (MANUAL) 0 % (0-2); EOSINOPHILS % (MANUAL) 0 % (0-3); LYMPHOCYTES % (MANUAL) 37 % (20-45); NEUTROPHILS % (MANUAL) 47 % (45-75); PLATELET ESTIMATE ADEQUATE; PLATELET MORPHOLOGY NORMAL; TOTAL CELLS COUNTED 100
[2017-02-08 08:45] LABS: ERYTHROCYTE SEDIMENTATION RATE 122 MM/HR (0-20)
[2017-02-08] MEDS: Docusate 100mg cap ORAL SCH ×3 (09:36→17:39)
[2017-02-08] MEDS: Miralax 17gm pkt ORAL SCH (09:36)
--- NOTE | 2017-02-08 10:11 | Diagnostic Imaging Report ---
APPROVED REPORT CPT Code: 88571 Present Symptoms Comments: R/O DVT BILATERAL: Imaging reveals a patent deep venous system bilaterally. There is no evidence of thrombus within the femoral, popliteal or tibial segments. The greater saphenous veins are also within normal limits. Doppler indicates normal spontaneous flow within these segments.
[2017-02-08] MEDS: D5NS 1,000 ML IV SCH ×2 (10:20→23:46)
--- NOTE | 2017-02-08 11:07 | Nephrology Progress Note ---
Assessment/Plan Problem List: (1) Metastatic cancer (2) Fever (3) Hyponatremia (4) Protein-calorie malnutrition, severe Assessment (1) Fever, leukopenia (2) Hyponatremia, etiology? improved (3) Protein-calorie malnutrition, severe (4) Metastatic cancer Nasopharyngeal cancer. (5) History of hypertension (6) COPD. (7) History of smoking. Plan Plan: Check Clem U Os TSH wnl Lipid panel Phos supplements Vit D Subjective ROS Limited/Unobtainable: No Constitutional: Reports: malaise, weakness Objective Objective Last 24 Hour Vital Signs Date Time Temp Pulse Resp B/P (MAP) Pulse Ox O2 Delivery O2 Flow Rate FiO2 02/07/17 20:00 98.1 79 17 115/69 98 Room Air 02/07/17 16:12 97.5 73 18 124/66 100 Room Air 02/07/17 12:30 97.2 76 18 127/68 99 Room Air 02/07/17 12:00 67 Laboratory Tests 02/07/17 16:30: Stool Occult Blood Positive 02/08/17 05:40: White Blood Count 1.0*L, Red Blood Count 2.87L, Hemoglobin 8.5L, Hematocrit 25.9L, Mean Corpuscular Volume 90, Mean Corpuscular Hemoglobin 29.6, Mean Corpuscular Hemoglobin Concent 32.8, Red Cell Distribution Width 16.3H, Platelet Count 233, Mean Platelet Volume 5.4L, Neutrophils (%) (Auto) , Lymphocytes (%) (Auto) , Monocytes (%) (Auto) , Eosinophils (%) (Auto) , Basophils (%) (Auto) , Differential Total Cells Counted 100, Neutrophils % ( Manual) 47, Lymphocytes % (Manual) 37, Monocytes % (Manual) 16H, Eosinophils % ( Manual) 0, Basophils % (Manual) 0, Band Neutrophils 0, Platelet Estimate Adequate, Platelet Morphology Normal, Anisocytosis 1+, Erythrocyte Sedimentation Rate 122H, Sodium Level 136, Potassium Level 3.5, Chloride Level 108H, Carbon Dioxide Level 18L, Anion Gap 10, Blood Urea Nitrogen 8, Creatinine 0.8, Estimat Glomerular Filtration Rate , Glucose Level 119H, Calcium Level 6.7L , Phosphorus Level 1.2L, Magnesium Level 2.2, Total Bilirubin 0.3, Aspartate Amino Transf (AST/SGOT) 12L, Alanine Aminotransferase (ALT/SGPT) 10L, Alkaline Phosphatase 120H, Total Protein 6.5, Albumin 2.2L, Globulin 4.3, Albumin/ Globulin Ratio 0.5L Height (Feet): 5 Height (Inches): 10.00 Weight (Pounds): 125 General Appearance: no apparent distress, lethargic Cardiovascular: regular rhythm Respiratory/Chest: decreased breath sounds Abdomen: soft HEATHER YU Feb 08, 2017 11:07
[2017-02-08 12:00] VITALS: BP 132/64
[2017-02-08] MEDS ORDERED: Potassium Phosphate 30 MM in NS 275 ML IV ONE (12:00)
--- NOTE | 2017-02-08 12:17 | Pulmonology Progress Note ---
Assessment/Plan Problems: (1) Neutropenia (2) Fever (3) Hyponatremia (4) Protein-calorie malnutrition, severe (5) Metastatic cancer (6) History of hypertension Assessment/Plan f/u on cultures swallow study calorie count pt/ ot social service reverse isolation f/u ID recommendation symptomatic treatment no new cultures hematology evaluation blood smear reviewed NORMOCYTIC, NORMOCHROMIC ANEMIA. LEUCOPENIA. Subjective ROS Limited/Unobtainable: No Interval Events: feeling slightly better Allergies: Coded Allergies: No Known Allergies (Unverified , 02/05/17) Objective Last 24 Hour Vital Signs Date Time Temp Pulse Resp B/P (MAP) Pulse Ox O2 Delivery O2 Flow Rate FiO2 02/07/17 20:00 98.1 79 17 115/69 98 Room Air 02/07/17 16:12 97.5 73 18 124/66 100 Room Air 02/07/17 12:30 97.2 76 18 127/68 99 Room Air Objective General Appearance: cachetic Lines, tubes and drains: peripheral HEENT: normocephalic, atraumatic Neck: non-tender, normal alignment Respiratory/Chest: chest wall non-tender, lungs clear Cardiovascular/Chest: normal peripheral pulses, regular rhythm, no gallop/ murmur Abdomen: normal bowel sounds, non tender Genitourinary/Rectal: normal genital exam Extremities: normal range of motion, non-tender Microbiology Date/Time Source Procedure Growth Status 02/05/17 14:10 Blood Blood Culture - Preliminary NO GROWTH AFTER 48 HOURS Resulted 02/05/17 14:05 Blood Blood Culture - Preliminary NO GROWTH AFTER 48 HOURS Resulted Laboratory Tests 02/07/17 16:30: Stool Occult Blood Positive 02/08/17 05:40: White Blood Count 1.0*L, Red Blood Count 2.87L, Hemoglobin 8.5L, Hematocrit 25.9L, Mean Corpuscular Volume 90, Mean Corpuscular Hemoglobin 29.6, Mean Corpuscular Hemoglobin Concent 32.8, Red Cell Distribution Width 16.3H, Platelet Count 233, Mean Platelet Volume 5.4L, Neutrophils (%) (Auto) , Lymphocytes (%) (Auto) , Monocytes (%) (Auto) , Eosinophils (%) (Auto) , Basophils (%) (Auto) , Differential Total Cells Counted 100, Neutrophils % ( Manual) 47, Lymphocytes % (Manual) 37, Monocytes % (Manual) 16H, Eosinophils % ( Manual) 0, Basophils % (Manual) 0, Band Neutrophils 0, Platelet Estimate Adequate, Platelet Morphology Normal, Anisocytosis 1+, Erythrocyte Sedimentation Rate 122H, Sodium Level 136, Potassium Level 3.5, Chloride Level 108H, Carbon Dioxide Level 18L, Anion Gap 10, Blood Urea Nitrogen 8, Creatinine 0.8, Estimat Glomerular Filtration Rate , Glucose Level 119H, Calcium Level 6.7L , Phosphorus Level 1.2L, Magnesium Level 2.2, Total Bilirubin 0.3, Aspartate Amino Transf (AST/SGOT) 12L, Alanine Aminotransferase (ALT/SGPT) 10L, Alkaline Phosphatase 120H, Total Protein 6.5, Albumin 2.2L, Globulin 4.3, Albumin/ Globulin Ratio 0.5L Current Medications Medications (Trade) Dose Ordered Sig/Christopher Route PRN Reason Start Time Stop Time Status Last Admin Dose Admin Dextrose (Dextrose 50%) STAT PRN IV Hypoglycemia 02/08/17 17:45 03/07/17 17:44 Dextrose/Sodium Chloride 1,000 ml @ 75 mls/hr [id number] IV 02/07/17 21:00 03/08/17 10:59 02/07/17 21:00 Docusate Sodium (Colace) 100 mg THREE TIMES A DAY ORAL 02/08/17 09:00 03/08/17 17:59 02/08/17 09:36 Ergocalciferol (Drisdol) 50,000 intlu QWEEK ORAL 02/08/17 17:00 03/10/17 16:59 Lorazepam (Ativan 2mg/ml 1ml) 0.5 mg Q4H PRN IV For Anxiety 02/07/17 21:45 02/12/17 17:44 Morphine Sulfate (Morphine Sulfate) 1 mg Q4H PRN IVP PAIN 4-10 02/07/17 21:45 02/12/17 17:44 Ondansetron HCl (Zofran) 4 mg Q6H PRN IVP Nausea & Vomiting 02/07/17 23:45 03/07/17 17:44 Phenol/Menthol (Chloraseptic) 1 spray Q4H PRN ORAL mouth soreness and pain 02/08/17 00:15 03/09/17 12:14 02/08/17 06:39 Piperacillin Sod/ Tazobactam Sod 3.375 gm/Dextrose 55 ml @ 13.75 mls/ hr EVERY 8 HOURS IVPB 02/07/17 22:00 02/12/17 21:59 02/08/17 06:30 Polyethylene Glycol (Miralax) 17 gm DAILY ORAL 02/08/17 09:00 03/09/17 08:59 02/08/17 09:36 Potassium Phosphate 30 mm/ Sodium Chloride 285 ml @ 47.5 mls/hr ONCE ONCE IV 02/08/17 12:00 02/08/17 17:59 AALIYAH SANCHEZ Feb 08, 2017 12:17
--- NOTE | 2017-02-08 12:30 | Infectious Diseases Prog Note ---
Assessment/Plan Assessment/Plan ASSESSMENT 1. Sore throat/mucositis- r/o mica esophagitis(nasopharyngeal cancer contributing) 2. Neutropenic Fever 3 Nasopharyngeal cancer on chemo PLAN: -Continue IV Zosyn #2 (abx d#4) while neutropenic and awaiting cultures and add nystatin swish and swallow for possible mica esophagitis; if odynophagia not improving may add PO Fluconazole -02/07 SP IV Vancomycin #2 -02/06 SP IV Cefepime #2 -f/u cx -Neutropenic precautions - Monitor CBC/BMP, temperatures -The patient may benefit from Ear, Nose, and Throat evaluation -heme onc eval pending Thank you, Dr. Mahajan, for allowing me to participate in the care of this patient. I will follow the patient with you during this hospitalization. Subjective Allergies: Coded Allergies: No Known Allergies (Unverified , 02/05/17) Subjective afebrile in 36hrs now neutropenic Bcx NTD Objective Vital Signs Last 24 Hour Vital Signs Date Time Temp Pulse Resp B/P (MAP) Pulse Ox O2 Delivery O2 Flow Rate FiO2 02/07/17 20:00 98.1 79 17 115/69 98 Room Air 02/07/17 16:12 97.5 73 18 124/66 100 Room Air 02/07/17 12:30 97.2 76 18 127/68 99 Room Air Height (Feet): 5 Height (Inches): 10.00 Weight (Pounds): 125 Objective PHYSICAL EXAMINATION: HEENT: No pale conjunctivae. No icterus. NECK: No lymphadenopathy. The patient has some induration and tenderness over the right side of the throat. Mouth, no thrush. CHEST: Clear. HEART: S1 and S2. ABDOMEN: Soft. EXTREMITIES: No cyanosis. Microbiology Date/Time Source Procedure Growth Status 02/05/17 14:10 Blood Blood Culture - Preliminary NO GROWTH AFTER 48 HOURS Resulted 02/05/17 14:05 Blood Blood Culture - Preliminary NO GROWTH AFTER 48 HOURS Resulted Laboratory Tests Test 02/07/17 16:30 02/08/17 05:40 Stool Occult Blood Positive (NEGATIVE) White Blood Count 1.0 K/UL (4.8-10.8) *L Red Blood Count 2.87 M/UL (4.70-6.10) L Hemoglobin 8.5 G/DL (14.2-18.0) L Hematocrit 25.9 % (42.0-52.0) L Mean Corpuscular Volume 90 FL (80-99) Mean Corpuscular Hemoglobin 29.6 PG (27.0-31.0) Mean Corpuscular Hemoglobin Concent 32.8 G/DL (32.0-36.0) Red Cell Distribution Width 16.3 % (11.6-14.8) H Platelet Count 233 K/UL (150-450) Mean Platelet Volume 5.4 FL (6.5-10.1) L Neutrophils (%) (Auto) % (45.0-75.0) Lymphocytes (%) (Auto) % (20.0-45.0) Monocytes (%) (Auto) % (1.0-10.0) Eosinophils (%) (Auto) % (0.0-3.0) Basophils (%) (Auto) % (0.0-2.0) Differential Total Cells Counted 100 Neutrophils % (Manual) 47 % (45-75) Lymphocytes % (Manual) 37 % (20-45) Monocytes % (Manual) 16 % (1-10) H Eosinophils % (Manual) 0 % (0-3) Basophils % (Manual) 0 % (0-2) Band Neutrophils 0 % (0-8) Platelet Estimate Adequate Platelet Morphology Normal Anisocytosis 1+ Erythrocyte Sedimentation Rate 122 MM/HR (0-20) H Sodium Level 136 MMOL/L (136-145) Potassium Level 3.5 MMOL/L (3.5-5.1) Chloride Level 108 MMOL/L (98-107) H Carbon Dioxide Level 18 MMOL/L (21-32) L Anion Gap 10 mmol/L (5-15) Blood Urea Nitrogen 8 mg/dL (7-18) Creatinine 0.8 MG/DL (0.55-1.30) Estimat Glomerular Filtration Rate mL/min (>60) Glucose Level 119 MG/DL (74-106) H Calcium Level 6.7 MG/DL (8.5-10.1) L Phosphorus Level 1.2 MG/DL (2.5-4.9) L Magnesium Level 2.2 MG/DL (1.8-2.4) Total Bilirubin 0.3 MG/DL (0.2-1.0) Aspartate Amino Transf (AST/SGOT) 12 U/L (15-37) L Alanine Aminotransferase (ALT/SGPT) 10 U/L (12-78) L Alkaline Phosphatase 120 U/L (46-116) H Total Protein 6.5 G/DL (6.4-8.2) Albumin 2.2 G/DL (3.4-5.0) L Globulin 4.3 g/dL Albumin/Globulin Ratio 0.5 (1.0-2.7) L Current Medications Medications (Trade) Dose Ordered Sig/Christopher Route PRN Reason Start Time Stop Time Status Last Admin Dose Admin Dextrose (Dextrose 50%) STAT PRN IV Hypoglycemia 02/08/17 17:45 03/07/17 17:44 Dextrose/Sodium Chloride 1,000 ml @ 75 mls/hr [id number] IV 02/07/17 21:00 03/08/17 10:59 02/07/17 21:00 Docusate Sodium (Colace) 100 mg THREE TIMES A DAY ORAL 02/08/17 09:00 03/08/17 17:59 02/08/17 09:36 Ergocalciferol (Drisdol) 50,000 intlu QWEEK ORAL 02/08/17 17:00 03/10/17 16:59 Lorazepam (Ativan 2mg/ml 1ml) 0.5 mg Q4H PRN IV For Anxiety 02/07/17 21:45 02/12/17 17:44 Morphine Sulfate (Morphine Sulfate) 1 mg Q4H PRN IVP PAIN 4-10 02/07/17 21:45 02/12/17 17:44 Ondansetron HCl (Zofran) 4 mg Q6H PRN IVP Nausea & Vomiting 02/07/17 23:45 03/07/17 17:44 Phenol/Menthol (Chloraseptic) 1 spray Q4H PRN ORAL mouth soreness and pain 02/08/17 00:15 03/09/17 12:14 02/08/17 06:39 Piperacillin Sod/ Tazobactam Sod 3.375 gm/Dextrose 55 ml @ 13.75 mls/ hr EVERY 8 HOURS IVPB 02/07/17 22:00 02/12/17 21:59 02/08/17 06:30 Polyethylene Glycol (Miralax) 17 gm DAILY ORAL 02/08/17 09:00 03/09/17 08:59 02/08/17 09:36 Potassium Phosphate 30 mm/ Sodium Chloride 285 ml @ 47.5 mls/hr ONCE ONCE IV 02/08/17 12:00 02/08/17 17:59 Courtney Fowler M.D. Feb 08, 2017 12:30
[2017-02-08] MEDS: Nystatin Susp 500,000 units/5ml ORAL SCH ×3 (12:54→21:09)
--- NOTE | 2017-02-08 14:20 | Diagnostic Imaging Report ---
Indication: MASS Technique: IV administration nonionic contrast Spiral acquisitions obtained through the neck Multiplanar reconstructions were generated. Total dose length product 669 mGycm. CTDIvol(s) 8, 105, 19 mGy. Radiation dose was minimized using automated exposure control Comparison: None Findings: The tonsillar pillars are somewhat prominent, particularly the left, where abnormal soft tissue is seen obliterating the parapharyngeal space and surrounding the internal carotid artery. There is irregularity of the nasopharyngeal mucosa on the right as well as thickening of the underlying soft tissue. There is no evidence of abscess. No cervical lymphadenopathy is demonstrated. The left maxillary sinus is nearly completely opacified. There is some dense material centrally. The right maxillary sinus demonstrates an air-fluid level. There is also some minimal ethmoid sinus disease. The hypopharynx, larynx, and trachea are unremarkable. The bilateral parotid glands and bilateral submandibular glands are unremarkable. The thyroid is unremarkable. The arteries are unremarkable. The esophagus is gas-filled. The upper mediastinum is unremarkable. The included lung apices are clear. There is degenerative cervical spondylosis. The patient is edentulous Impression: Asymmetric tonsils and peritonsillar soft tissues, particularly in the region of the nasopharynx, with irregularity of the right-sided posterior nasopharyngeal mucosa and obliteration of the left parapharyngeal space. 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 Abnormalities are somewhat ill-defined, so extend of residual tumor as difficult to state. No evidence of abscess Left maxillary sinus disease. Density of central maxillary sinus contents raises possibility of fungal infection Right axillary sinus air-fluid level, raises concern for acute sinusitis Slightly distended gas filled proximal esophagus, probably related to distal esophageal dysmotility Cervical spondylosis The CT scanner at [facility] is accredited by the [employer] and the scans are performed using protocols designed to limit radiation exposure to as low as reasonably achievable to attain images of sufficient resolution adequate for diagnostic evaluation.
[2017-02-08 16:00] VITALS: BP 124/66
[2017-02-08] MEDS ORDERED: Vitamin D 50,000 units cap ORAL SCH (17:00)
[2017-02-08] MEDS: TBO-Filgrastim 300 mcg/0.5ml SQ ONE ×2 (17:39→18:30)
[2017-02-08] MEDS ORDERED: TBO-Filgrastim 300 mcg/0.5ml SQ ONE (19:15)
[2017-02-08 20:00] VITALS: BP 120/60
[2017-02-09] VITALS: BP 125/65
[2017-02-09 04:00] VITALS: BP 102/68
[2017-02-09] MEDS: Piperacillin/Tazobactam 3.375 GM in D5W 55 ML IVPB SCH ×3 (05:04→21:08)
[2017-02-09 06:43] LABS: MEAN CORPUSCULAR HGB CONC 32.3 G/DL (32.0-36.0); MEAN CORPUSCULAR VOLUME 90 FL (80-99); MEAN PLATELET VOLUME 5.9 FL (6.5-10.1); PLATELET COUNT 248 K/UL (150-450); RED BLOOD COUNT 2.94 M/UL (4.70-6.10); RED CELL DISTRIBUTION WIDTH 16.3 % (11.6-14.8); WHITE BLOOD COUNT 2.6 K/UL (4.8-10.8)
[2017-02-09 07:03] LABS: ALANINE AMINOTRANSFERASE 10 U/L (12-78); ALBUMIN/GLOBULIN RATIO 0.5 (1.0-2.7); ANION GAP 10 mmol/L (5-15); ASPARTATE AMINO TRANSFERASE 11 U/L (15-37); CALCIUM 6.4 MG/DL (8.5-10.1); CARBON DIOXIDE 19 MMOL/L (21-32); CHLORIDE 107 MMOL/L (98-107); CREATININE 0.8 MG/DL (0.55-1.30); MAGNESIUM 1.9 MG/DL (1.8-2.4); PHOSPHORUS 1.4 MG/DL (2.5-4.9); POTASSIUM 3.8 MMOL/L (3.5-5.1); SODIUM 136 MMOL/L (136-145); TOTAL PROTEIN 6.4 G/DL (6.4-8.2)
[2017-02-09 08:02] VITALS: BP 120/68
[2017-02-09] MEDS: Docusate 100mg cap ORAL SCH ×3 (08:14→17:06)
[2017-02-09] MEDS: Miralax 17gm pkt ORAL SCH (08:14)
[2017-02-09] MEDS: Nystatin Susp 500,000 units/5ml ORAL SCH ×4 (08:14→21:06)
--- NOTE | 2017-02-09 08:15 | Consultation ---
DATE OF CONSULTATION: 02/08/2017 HEMATOLOGY/ONCOLOGY CONSULTATION CONSULTING PHYSICIAN: Dada Bourne M.D. REQUESTING PHYSICIAN: Sanju Mahajan M.D. REASON FOR CONSULTATION: Evaluation of severe leukopenia normocytic and normochromic anemia and leukopenia that has been progressive. IDENTIFICATION DATA: Dear Dr. Mahajan: The patient is a pleasant 71-year-old male with a past medical history significant for multiple issues including sore throat, found to have fever. ID Service consulted for further evaluation and treatment. 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 He is on chemotherapy. We reviewed the patient's records. He finished a round of chemotherapy recently. He has been seen by telephonic nurse case manager today. He was noted to have severe leukopenia that is progressive over the past several days. Therefore, Hematology Service was consulted for further evaluation and treatment. PAST MEDICAL HISTORY: 1. Metastatic head and neck cancer that is metastatic to the bone . 2. Hypertension. 3. History of smoking. MEDICATIONS: On antibiotics. Other medications were reviewed. ALLERGIES: No known drug allergies. SOCIAL HISTORY: Smoking. No illicit drug use. No alcohol. FAMILY HISTORY: Noncontributory. REVIEW OF SYSTEMS: CONSTITUTIONAL: No fever, chills, or night sweats. SKIN: No rashes or itching. HEENT: Coughing up blood and hematemesis. GASTROINTESTINAL: As noted above. GENITOURINARY: No dysuria, frequency, or urgency. MUSCULOSKELETAL: No joint swelling, muscle pain, or trauma. PHYSICAL EXAMINATION: GENERAL: The patient is in no distress. VITAL SIGNS: Reviewed. PULMONARY: Decreased breath sounds. CARDIOVASCULAR: Regular rate. No S3 or S4. GASTROINTESTINAL: Abdomen is soft, nontender, and nondistended. EXTREMITIES: 1+ edema. LABORATORY DATA: WBC 4.9, hemoglobin 8.5, hematocrit 27, and platelet count 233,000. INR is 1. BUN of 8, creatinine 0.8, calcium is 6.7. ALT of 10 and AST of 12. ASSESSMENT AND RECOMMENDATIONS: 1. Anemia. 2. Leukopenia. It is very likely related to the patient receiving chemotherapy. No evidence of noted and is consistent with that is to be expected with chemotherapy. It occurs anywhere from 4 to 14 after administered dose of Neupogen. 3. Anemia secondary to chronic disease. Continue to closely monitor. Workup has been reviewed. 4. Coagulopathy secondary to acute renal failure. We will continue to monitor as needed. 5. . 6. Nasopharyngeal carcinoma with metastasis, likely related to history of smoking and getting chemotherapy.. 7. Neutropenia on antibiotics, broad spectrum. Cultures pending. I appreciate the consultation. Dada Bourne M.D. DR: Julieta JOB#: [id number] CC:
[2017-02-09 08:21] LABS: ANISOCYTOSIS 1+; BAND NEUTROPHILS % (MANUAL) 2 % (0-8); BASOPHILS % (MANUAL) 0 % (0-2); EOSINOPHILS % (MANUAL) 0 % (0-3); HYPOCHROMASIA 2+; LYMPHOCYTES % (MANUAL) 17 % (20-45); NEUTROPHILS % (MANUAL) 58 % (45-75); PLATELET ESTIMATE ADEQUATE; PLATELET MORPHOLOGY NORMAL; TOTAL CELLS COUNTED 100
[2017-02-09] MEDS ORDERED: Potassium Phosphate 30 MM in NS 275 ML IV ONE (11:00)
--- NOTE | 2017-02-09 11:03 | Infectious Diseases Prog Note ---
Assessment/Plan Assessment/Plan ASSESSMENT #. Sore throat/mucositis- r/o mica mucositis(nasopharyngeal cancer contributing) -CT neck: Asymmetric tonsils and peritonsillar soft tissues, particularly in the region of the nasopharynx, with irregularity of the right-sided posterior nasopharyngeal mucosa and obliteration of the left parapharyngeal space. 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 Abnormalities are somewhat ill-defined, so extend of residual tumor as difficult to state. No evidence of abscess. Left maxillary sinus disease. Density of central maxillary sinus contents raises possibility of fungal infection.Right axillary sinus air-fluid level, raises concern for acute sinusitis. Slightly distended gas filled proximal esophagus, probably related to distal esophageal dysmotility. Cervical spondylosis # Neutropenic Fever- neutropenia resolved s/p neupogen, ANC 1500 today -Bcx NTD -CXR: No acute cardiopulmonary disease. 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 PLAN: -Continue IV Zosyn #3 (abx d#5) while neutropenic and awaiting cultures and continue nystatin swish and swallow #2/7-14 for possible mica mucositis -02/07 SP IV Vancomycin #2 -02/06 SP IV Cefepime #2 -Will ask ENT to get L maxillary sinus cultures and biopsy to elucidate if fungal rhinosinusitis in this immunocompromised patient -will monitor closely for persistent fevers, sinus pain, congestion and low threshold to start antifungal treatment -1,3 B-d glucan -Asp ag -f/u cx -Neutropenic precautions - Monitor CBC/BMP, temperatures -The patient may benefit from Ear, Nose, and Throat evaluation -heme onc eval pending Thank you, Dr. Mahajan, for allowing me to participate in the care of this patient. I will follow the patient with you during this hospitalization. Discussed with Dr Mahajan and Dr Meredith (radiologist) Subjective Allergies: Coded Allergies: No Known Allergies (Unverified , 02/05/17) Subjective low grade fever last night, Tm 100 neutropenia resolved Bcx NTD Objective Vital Signs Last 24 Hour Vital Signs Date Time Temp Pulse Resp B/P (MAP) Pulse Ox O2 Delivery O2 Flow Rate FiO2 02/09/17 08:02 97.8 75 19 120/68 99 02/09/17 04:00 97.6 82 18 102/68 99 Room Air 02/09/17 00:00 99.2 79 20 125/65 99 Room Air 02/08/17 20:00 100.0 75 19 120/60 97 Room Air 02/08/17 16:00 97.8 68 18 124/66 100 Room Air 02/08/17 12:00 97.5 80 18 132/64 97 Room Air Height (Feet): 5 Height (Inches): 10.00 Weight (Pounds): 125 Objective PHYSICAL EXAMINATION: HEENT: No pale conjunctivae. No icterus. NECK: No lymphadenopathy. The patient has some induration and tenderness over the right side of the throat. Mouth, no thrush. CHEST: Clear. HEART: S1 and S2. ABDOMEN: Soft. EXTREMITIES: No cyanosis. Laboratory Tests Test 02/09/17 06:05 White Blood Count 2.6 K/UL (4.8-10.8) #L Red Blood Count 2.94 M/UL (4.70-6.10) L Hemoglobin 8.5 G/DL (14.2-18.0) L Hematocrit 26.3 % (42.0-52.0) L Mean Corpuscular Volume 90 FL (80-99) Mean Corpuscular Hemoglobin 29.0 PG (27.0-31.0) Mean Corpuscular Hemoglobin Concent 32.3 G/DL (32.0-36.0) Red Cell Distribution Width 16.3 % (11.6-14.8) H Platelet Count 248 K/UL (150-450) Mean Platelet Volume 5.9 FL (6.5-10.1) L Neutrophils (%) (Auto) % (45.0-75.0) Lymphocytes (%) (Auto) % (20.0-45.0) Monocytes (%) (Auto) % (1.0-10.0) Eosinophils (%) (Auto) % (0.0-3.0) Basophils (%) (Auto) % (0.0-2.0) Differential Total Cells Counted 100 Neutrophils % (Manual) 58 % (45-75) Lymphocytes % (Manual) 17 % (20-45) L Monocytes % (Manual) 23 % (1-10) H Eosinophils % (Manual) 0 % (0-3) Basophils % (Manual) 0 % (0-2) Band Neutrophils 2 % (0-8) Platelet Estimate Adequate Platelet Morphology Normal Hypochromasia 2+ Anisocytosis 1+ Erythrocyte Sedimentation Rate 121 MM/HR (0-20) H Sodium Level 136 MMOL/L (136-145) Potassium Level 3.8 MMOL/L (3.5-5.1) Chloride Level 107 MMOL/L (98-107) Carbon Dioxide Level 19 MMOL/L (21-32) L Anion Gap 10 mmol/L (5-15) Blood Urea Nitrogen 7 mg/dL (7-18) Creatinine 0.8 MG/DL (0.55-1.30) Estimat Glomerular Filtration Rate mL/min (>60) Glucose Level 97 MG/DL (74-106) Calcium Level 6.4 MG/DL (8.5-10.1) L Phosphorus Level 1.4 MG/DL (2.5-4.9) L Magnesium Level 1.9 MG/DL (1.8-2.4) Total Bilirubin 0.4 MG/DL (0.2-1.0) Gamma Glutamyl Transpeptidase 78 U/L (5-85) Aspartate Amino Transf (AST/SGOT) 11 U/L (15-37) L Alanine Aminotransferase (ALT/SGPT) 10 U/L (12-78) L Alkaline Phosphatase 113 U/L (46-116) C-Reactive Protein, Quantitative 4.0 mg/dL (0.00-0.90) H Total Protein 6.4 G/DL (6.4-8.2) Albumin 2.2 G/DL (3.4-5.0) L Globulin 4.2 g/dL Albumin/Globulin Ratio 0.5 (1.0-2.7) L Current Medications Medications (Trade) Dose Ordered Sig/Christopher Route PRN Reason Start Time Stop Time Status Last Admin Dose Admin Dextrose (Dextrose 50%) STAT PRN IV Hypoglycemia 02/08/17 17:45 03/07/17 17:44 Dextrose/Sodium Chloride 1,000 ml @ 75 mls/hr [id number] IV 02/07/17 21:00 03/08/17 10:59 02/08/17 23:46 Docusate Sodium (Colace) 100 mg THREE TIMES A DAY ORAL 02/08/17 09:00 03/08/17 17:59 02/09/17 08:14 Ergocalciferol (Drisdol) 50,000 intlu QWEEK ORAL 02/08/17 17:00 03/10/17 16:59 02/08/17 17:39 Lorazepam (Ativan 2mg/ml 1ml) 0.5 mg Q4H PRN IV For Anxiety 02/07/17 21:45 02/12/17 17:44 Morphine Sulfate (Morphine Sulfate) 1 mg Q4H PRN IVP PAIN 4-10 02/07/17 21:45 02/12/17 17:44 Nystatin (Nystatin) 5 ml QID ORAL 02/08/17 13:00 02/15/17 12:59 02/09/17 08:14 Ondansetron HCl (Zofran) 4 mg Q6H PRN IVP Nausea & Vomiting 02/07/17 23:45 03/07/17 17:44 Phenol/Menthol (Chloraseptic) 1 spray Q4H PRN ORAL mouth soreness and pain 02/08/17 00:15 03/09/17 12:14 02/08/17 16:49 Piperacillin Sod/ Tazobactam Sod 3.375 gm/Dextrose 55 ml @ 13.75 mls/ hr EVERY 8 HOURS IVPB 02/07/17 22:00 02/12/17 21:59 02/09/17 05:04 Polyethylene Glycol (Miralax) 17 gm DAILY ORAL 02/08/17 09:00 03/09/17 08:59 02/09/17 08:14 Potassium Phosphate 30 mm/ Sodium Chloride 285 ml @ 47.5 mls/hr ONCE ONCE IV 02/09/17 11:00 02/09/17 16:59 Courtney Fowler M.D. Feb 09, 2017 11:03
[2017-02-09 11:16] VITALS: BP 124/69
[2017-02-09] MEDS: Chloraseptic Spray 20mL Bottle ORAL PRN (13:22)
--- NOTE | 2017-02-09 13:26 | Nephrology Progress Note ---
Assessment/Plan Problem List: (1) Metastatic cancer (2) Fever (3) Hyponatremia (4) Protein-calorie malnutrition, severe Assessment (1) Fever, leukopenia (2) Hyponatremia, etiology? improved (3) Protein-calorie malnutrition, severe (4) Metastatic cancer Nasopharyngeal cancer. (5) History of hypertension (6) COPD. (7) History of smoking. Plan Plan: Check Clem U Os TSH wnl Lipid panel Phos supplements Vit D Subjective ROS Limited/Unobtainable: No Constitutional: Reports: malaise Objective Objective Last 24 Hour Vital Signs Date Time Temp Pulse Resp B/P (MAP) Pulse Ox O2 Delivery O2 Flow Rate FiO2 02/09/17 11:16 98.1 82 20 124/69 100 02/09/17 08:02 97.8 75 19 120/68 99 02/09/17 04:00 97.6 82 18 102/68 99 Room Air 02/09/17 00:00 99.2 79 20 125/65 99 Room Air 02/08/17 20:00 100.0 75 19 120/60 97 Room Air 02/08/17 16:00 97.8 68 18 124/66 100 Room Air Intake and Output 02/09/17 02/10/17 19:00 07:00 Intake Total 240 ml Balance 240 ml Intake Oral 240 ml Laboratory Tests 02/09/17 06:05: White Blood Count 2.6#L, Red Blood Count 2.94L, Hemoglobin 8.5L, Hematocrit 26.3L, Mean Corpuscular Volume 90, Mean Corpuscular Hemoglobin 29.0, Mean Corpuscular Hemoglobin Concent 32.3, Red Cell Distribution Width 16.3H, Platelet Count 248, Mean Platelet Volume 5.9L, Neutrophils (%) (Auto) , Lymphocytes (%) (Auto) , Monocytes (%) (Auto) , Eosinophils (%) (Auto) , Basophils (%) (Auto) , Differential Total Cells Counted 100, Neutrophils % ( Manual) 58, Lymphocytes % (Manual) 17L, Monocytes % (Manual) 23H, Eosinophils % (Manual) 0, Basophils % (Manual) 0, Band Neutrophils 2, Platelet Estimate Adequate, Platelet Morphology Normal, Hypochromasia 2+, Anisocytosis 1+, Erythrocyte Sedimentation Rate 121H, Sodium Level 136, Potassium Level 3.8, Chloride Level 107, Carbon Dioxide Level 19L, Anion Gap 10, Blood Urea Nitrogen 7, Creatinine 0.8, Estimat Glomerular Filtration Rate , Glucose Level 97, Calcium Level 6.4L, Phosphorus Level 1.4L, Magnesium Level 1.9, Total Bilirubin 0.4, Gamma Glutamyl Transpeptidase 78, Aspartate Amino Transf (AST/SGOT) 11L, Alanine Aminotransferase (ALT/SGPT) 10L, Alkaline Phosphatase 113, C-Reactive Protein, Quantitative 4.0H, Total Protein 6.4, Albumin 2.2L, Globulin 4.2, Albumin/Globulin Ratio 0.5L, Aspergillus galactomannan Antigen [Pending] Height (Feet): 5 Height (Inches): 10.00 Weight (Pounds): 125 General Appearance: no apparent distress Objective no change HEATHER YU Feb 09, 2017 13:26
[2017-02-09] MEDS ORDERED: D5NS 1,000 ML IV SCH (14:00)
[2017-02-09] MEDS ORDERED: ZOSYN 3.373.375 GM/1 IVPB (15:52)
[2017-02-09 15:56] VITALS: BP 135/71
--- NOTE | 2017-02-09 15:56 | Pulmonology Progress Note ---
Assessment/Plan Problems: (1) Neutropenia (2) Fever (3) Hyponatremia (4) Protein-calorie malnutrition, severe (5) Metastatic cancer (6) History of hypertension Assessment/Plan f/u on cultures swallow study noted, high risk for aspiration calorie count pt/ ot social service reverse isolation f/u ID recommendation symptomatic treatment no new cultures hematology evaluation appreciated d/w and Diamond the assistant case manager, He is ready to be discharged. Subjective ROS Limited/Unobtainable: No Constitutional: Reports: no symptoms HEENT: Repors: no symptoms Respiratory: Reports: no symptoms Allergies: Coded Allergies: No Known Allergies (Unverified , 02/05/17) Objective Last 24 Hour Vital Signs Date Time Temp Pulse Resp B/P (MAP) Pulse Ox O2 Delivery O2 Flow Rate FiO2 02/09/17 11:16 98.1 82 20 124/69 100 02/09/17 08:02 97.8 75 19 120/68 99 02/09/17 04:00 97.6 82 18 102/68 99 Room Air 02/09/17 00:00 99.2 79 20 125/65 99 Room Air 02/08/17 20:00 100.0 75 19 120/60 97 Room Air 02/08/17 16:00 97.8 68 18 124/66 100 Room Air Intake and Output 02/09/17 02/10/17 19:00 07:00 Intake Total 420 ml Balance 420 ml Intake Oral 420 ml Objective General Appearance: cachetic Lines, tubes and drains: peripheral HEENT: normocephalic, atraumatic Neck: non-tender, normal alignment Respiratory/Chest: chest wall non-tender, lungs clear Cardiovascular/Chest: normal peripheral pulses, regular rhythm, no gallop/ murmur Abdomen: normal bowel sounds, non tender Genitourinary/Rectal: normal genital exam Extremities: normal range of motion, non-tender Laboratory Tests 02/09/17 06:05: White Blood Count 2.6#L, Red Blood Count 2.94L, Hemoglobin 8.5L, Hematocrit 26.3L, Mean Corpuscular Volume 90, Mean Corpuscular Hemoglobin 29.0, Mean Corpuscular Hemoglobin Concent 32.3, Red Cell Distribution Width 16.3H, Platelet Count 248, Mean Platelet Volume 5.9L, Neutrophils (%) (Auto) , Lymphocytes (%) (Auto) , Monocytes (%) (Auto) , Eosinophils (%) (Auto) , Basophils (%) (Auto) , Differential Total Cells Counted 100, Neutrophils % ( Manual) 58, Lymphocytes % (Manual) 17L, Monocytes % (Manual) 23H, Eosinophils % (Manual) 0, Basophils % (Manual) 0, Band Neutrophils 2, Platelet Estimate Adequate, Platelet Morphology Normal, Hypochromasia 2+, Anisocytosis 1+, Erythrocyte Sedimentation Rate 121H, Sodium Level 136, Potassium Level 3.8, Chloride Level 107, Carbon Dioxide Level 19L, Anion Gap 10, Blood Urea Nitrogen 7, Creatinine 0.8, Estimat Glomerular Filtration Rate , Glucose Level 97, Calcium Level 6.4L, Phosphorus Level 1.4L, Magnesium Level 1.9, Total Bilirubin 0.4, Gamma Glutamyl Transpeptidase 78, Aspartate Amino Transf (AST/SGOT) 11L, Alanine Aminotransferase (ALT/SGPT) 10L, Alkaline Phosphatase 113, C-Reactive Protein, Quantitative 4.0H, Total Protein 6.4, Albumin 2.2L, Globulin 4.2, Albumin/Globulin Ratio 0.5L, Aspergillus galactomannan Antigen [Pending] Current Medications Medications (Trade) Dose Ordered Sig/Christopher Route PRN Reason Start Time Stop Time Status Last Admin Dose Admin Dextrose (Dextrose 50%) STAT PRN IV Hypoglycemia 02/08/17 17:45 03/07/17 17:44 Dextrose/Sodium Chloride 1,000 ml @ 40 mls/hr Q24H IV 02/09/17 14:00 03/11/17 13:59 Docusate Sodium (Colace) 100 mg THREE TIMES A DAY ORAL 02/08/17 09:00 03/08/17 17:59 02/09/17 13:22 Ergocalciferol (Drisdol) 50,000 intlu QWEEK ORAL 02/08/17 17:00 03/10/17 16:59 02/08/17 17:39 Lorazepam (Ativan 2mg/ml 1ml) 0.5 mg Q4H PRN IV For Anxiety 02/07/17 21:45 02/12/17 17:44 Morphine Sulfate (Morphine Sulfate) 1 mg Q4H PRN IVP PAIN 4-10 02/07/17 21:45 02/12/17 17:44 Nystatin (Nystatin) 5 ml QID ORAL 02/08/17 13:00 02/15/17 12:59 02/09/17 13:21 Ondansetron HCl (Zofran) 4 mg Q6H PRN IVP Nausea & Vomiting 02/07/17 23:45 03/07/17 17:44 Phenol/Menthol (Chloraseptic) 1 spray Q4H PRN ORAL mouth soreness and pain 02/08/17 00:15 03/09/17 12:14 02/09/17 13:22 Piperacillin Sod/ Tazobactam Sod 3.375 gm/Dextrose 55 ml @ 13.75 mls/ hr EVERY 8 HOURS IVPB 02/07/17 22:00 02/12/17 21:59 02/09/17 13:23 Polyethylene Glycol (Miralax) 17 gm DAILY ORAL 02/08/17 09:00 03/09/17 08:59 02/09/17 08:14 Potassium Phosphate 30 mm/ Sodium Chloride 285 ml @ 47.5 mls/hr ONCE ONCE IV 02/09/17 11:00 02/09/17 16:59 02/09/17 11:12 AALIYAH SANCHEZ Feb 09, 2017 15:56
--- NOTE | 2017-02-09 16:08 | General Progress Note ---
Assessment/Plan Assessment/Plan ASSESSMENT AND RECOMMENDATIONS: 1. Anemia 2/2 myelosuppresion vs chronic disease 2. Leukopenia. It is very likely related to the patient receiving chemotherapy. Patient receiving neupogen 3. Anemia secondary to chronic disease. Continue to closely monitor. Workup has been reviewed. 4. Coagulopathy secondary to acute renal failure. We will continue to monitor as needed. 5. 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 Pt receiving chemotherapy Subjective Allergies: Coded Allergies: No Known Allergies (Unverified , 02/05/17) All Systems: reviewed and negative except above Subjective febrile Objective Last 24 Hour Vital Signs Date Time Temp Pulse Resp B/P (MAP) Pulse Ox O2 Delivery O2 Flow Rate FiO2 02/09/17 15:56 98.1 62 20 135/71 97 02/09/17 11:16 98.1 82 20 124/69 100 02/09/17 08:02 97.8 75 19 120/68 99 02/09/17 04:00 97.6 82 18 102/68 99 Room Air 02/09/17 00:00 99.2 79 20 125/65 99 Room Air 02/08/17 20:00 100.0 75 19 120/60 97 Room Air Intake and Output 02/09/17 02/10/17 19:00 07:00 Intake Total 420 ml Balance 420 ml Intake Oral 420 ml Laboratory Tests 02/09/17 06:05: White Blood Count 2.6#L, Red Blood Count 2.94L, Hemoglobin 8.5L, Hematocrit 26.3L, Mean Corpuscular Volume 90, Mean Corpuscular Hemoglobin 29.0, Mean Corpuscular Hemoglobin Concent 32.3, Red Cell Distribution Width 16.3H, Platelet Count 248, Mean Platelet Volume 5.9L, Neutrophils (%) (Auto) , Lymphocytes (%) (Auto) , Monocytes (%) (Auto) , Eosinophils (%) (Auto) , Basophils (%) (Auto) , Differential Total Cells Counted 100, Neutrophils % ( Manual) 58, Lymphocytes % (Manual) 17L, Monocytes % (Manual) 23H, Eosinophils % (Manual) 0, Basophils % (Manual) 0, Band Neutrophils 2, Platelet Estimate Adequate, Platelet Morphology Normal, Hypochromasia 2+, Anisocytosis 1+, Erythrocyte Sedimentation Rate 121H, Sodium Level 136, Potassium Level 3.8, Chloride Level 107, Carbon Dioxide Level 19L, Anion Gap 10, Blood Urea Nitrogen 7, Creatinine 0.8, Estimat Glomerular Filtration Rate , Glucose Level 97, Calcium Level 6.4L, Phosphorus Level 1.4L, Magnesium Level 1.9, Total Bilirubin 0.4, Gamma Glutamyl Transpeptidase 78, Aspartate Amino Transf (AST/SGOT) 11L, Alanine Aminotransferase (ALT/SGPT) 10L, Alkaline Phosphatase 113, C-Reactive Protein, Quantitative 4.0H, Total Protein 6.4, Albumin 2.2L, Globulin 4.2, Albumin/Globulin Ratio 0.5L, Aspergillus galactomannan Antigen [Pending] Height (Feet): 5 Height (Inches): 10.00 Weight (Pounds): 125 General Appearance: no apparent distress EENT: normal ENT inspection Neck: normal alignment Cardiovascular: normal peripheral pulses Abdomen: non tender Dada Bourne Feb 09, 2017 16:08
[2017-02-09] MEDS: Magic Mouth Wash 60ml (Benadryl/Mylanta/Visc Lido) ORAL SCH ×3 (17:05→21:06)
[2017-02-09 20:00] VITALS: BP 123/62
[2017-02-09] MEDS ORDERED: Tubing IV Secondary IV ONE (22:19)
[2017-02-09] MEDS ORDERED: D5 1/2NS 1000ml IV ONE (22:19)
[2017-02-10 09:09] LABS: OTHERS PATHOLOGIST COMMENT
--- NOTE | 2017-02-11 10:55 | Discharge Summary ---
Discharge Summary Hospital Course Date of Admission Feb 05, 2017 at 15:30 Date of Discharge Feb 09, 2017 at 22:20 Admitting Diagnosis failure to thrive HPI For Artie Jauregui is a 71 year old male who was admitted on Feb 05, 2017 at 15:30 for Failure To Thrive Hospital Course [id number] Discharge Discharge Disposition Patient was discharged to [facility] Discharge Diagnoses: Denita Perez NP Feb 11, 2017 10:55
--- NOTE | 2017-02-11 21:30 | Discharge Summary 2 SIG ---
DATE OF ADMISSION: 02/05/2017 DATE OF DISCHARGE: 02/09/2017 CONSULTS: 1. Courtney Fowler M.D. 2. Dada Bourne M.D. 3. Fredy Valles M.D. 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 intake. He had gradual onset of symptoms and had bleeding in the mouth. He recently finished a round of chemotherapy. He reported decreased urine output. On evaluation at ED, he was noted to be anemic, hemoglobin 9.5, hematocrit 29, and creatinine was 1.0. EKG was in normal sinus rhythm and chest x-ray showed no acute disease. He was admitted to medical floor for failure to thrive, fever, hyponatremia, sodium of 132, and severe protein-calorie malnutrition. He was noted to be febrile and complaining of sore throat. He was initially given IV vancomycin and cefepime. Antibiotic was later changed to Zosyn. This patient was neutropenic. WBC went down to 1.0. Leukopenia likely related to patient's chemotherapy and was given Neupogen. He had been complaining of sore throat/mucositis, and CT neck showed no evidence of abscess with left maxillary sinus disease. There was right maxillary sinus air-fluid level concern for sinusitis. He had neutropenic fever. ANC 1500. Blood culture did not isolate any growth. He was placed on neutropenic precautions. Hyponatremia improved. Urine sodium was 97 and osmolality 567. He had venous duplex of lower extremity that was negative bilaterally. He was given nystatin swish and swallow for possible Mica mucositis and was recommended ENT evaluation to get the left maxillary sinus culture and biopsy to elucidate fungal rhinosinusitis in this immunocompromised patient. He eventually defervesced and WBC count improved. He was eventually transferred to a contracted hospital. DISPOSITION: The patient was transferred to [facility]. FINAL DIAGNOSES: 1. Neutropenia. 2. Neutropenic fever. 3. Hyponatremia. 4. Protein-calorie malnutrition, severe. 5. Anemia secondary to myelosuppression. 6. Nasopharyngeal carcinoma with metastasis related to history of smoking. 7. Acute renal failure. 8. Coagulopathy secondary to acute renal failure. 9. Anemia secondary to chronic disease. 10. Chronic obstructive pulmonary disease. 11. Sore throat/mucositis, possible mica esophagitis. 12. Leukopenia secondary to chemotherapy. Sanju Mahajan M.D. I have been assigned to dictate discharge summary on this account and I was not involved in the patient's management. Denita Perez N.P. DR: Monserrat JOB#: [id number] CC: ALEX
== END 2017-02-09 22:20 | disposition short-term general hospital (02) | DRG 146 ==
LOC: EDBD 13:35 → EMR 14:41 → 2E 15:30 → MERGE 15:30 → EMR 17:10 → EDBEDREQ 17:15 → 3E 02-07 20:35
DX: C11.9 Malignant neoplasm of nasopharynx, unspecified (principal); E43 Unspecified severe protein-calorie malnutrition; N17.9 Acute kidney failure, unspecified; B37.81 Candidal esophagitis; D70.1 Agranulocytosis secondary to cancer chemotherapy; D68.9 Coagulation defect, unspecified; C79.51 Secondary malignant neoplasm of bone; J44.9 Chronic obstructive pulmonary disease, unspecified; E87.1 Hypo-osmolality and hyponatremia; Z68.1 Body mass index [BMI] 19.9 or less, adult; R50.81 Fever presenting with conditions classified elsewhere; E86.0 Dehydration; R62.7 Adult failure to thrive; I10 Essential (primary) hypertension; Z87.891 Personal history of nicotine dependence; D63.8 Anemia in other chronic diseases classified elsewhere; T45.1X5A Adverse effect of antineoplastic and immunosuppressive drugs, initial encounter; Y92.89 Other specified places as the place of occurrence of the external cause
CPT/HCPCS: 36415; 70491; 71010; 74230; 80053; 81001; 81003; 82270; 82533; 82550; 82553; 82607; 82728; 82746; 82962; 82977; 83540; 83550; 83605; 83615; 83735; 83930; 83935; 84100; 84300; 84439; 84443; 84481; 84484; 84550; 85007; 85025; 85044; 85060; 85610; 85651; 85730; 86140; 87040; 93005; 93970; 99285

== ENCOUNTER 2017-05-29 19:24 | Inpatient (IN) | payer MEDICARE ==
[~2017-05-29] VITALS: Ht 165.1 cm; Wt 59.9 kg
[2017-05-29 19:24] VITALS: BP 70/43
[~2017-05-29 19:24] MED LIST: CALCIUM500 M3 PO; HYDROCODON-ACE1 EA13 ORAL; IRON159 MG PO; LACTULOSE10 GM/153 PO; LD2JL30 TOPIC; LOSARTAN-HCTZ1 EACH ORAL; MILK OF MA400 MG/51 ORAL; MOM30 ML ORAL; MORPHINE IR15 MG ORAL; ZOSYN 3.373.375 GM/1 IVPB
--- NOTE | 2017-05-29 19:33 | Emergency Room Report ---
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 last chemotherapy was about last week Patient has been having fever since Family reports of Tylenol was bringing the temperature down However as the patient appeared more confused and altered As he appeared generally weak her medics were contacted Upon arrival the patient is extremely hypotensive, tachycardic and hypotensive Is in critical condition Patient himself is nonverbal with us at this time limits the history of present illness (Robyn Gannon DO) Allergies: Coded Allergies: No Known Allergies (Unverified , 03/23/17) Patient History Limited by: medical condition Past Medical History: see triage record Pertinent Family History: unable to obtain Reviewed Nursing Documentation: PMH: Agreed, PSxH: Agreed (Robyn Gannon DO) Nursing Documentation-PMH Past Medical History: No History, Except For Hx Hypertension: Yes (Robyn Gannon DO) Review of Systems All Other Systems: limited - Other than the ones mentioned in the history of present illness all others are reviewed however they do stay limited due to the patient's mental status (Robyn Gannon DO) Physical Exam Vital Signs Date Time Temp Pulse Resp B/P (MAP) Pulse Ox O2 Delivery O2 Flow Rate FiO2 05/29/17 19:08 98.1 98 15 82/41 98 Room Air 98.1 Sp02 EP Interpretation: reviewed, normal, abnormal - However at bedside on room air patient is saturating at 75% which is a low oxygenation, after 2 L saturation has improved to 94% which is normal General Appearance: mild distress Head: normocephalic, atraumatic Eyes: bilateral eye PERRL ENT: dry mucus membranes Neck: supple, thyroid normal Respiratory: crackles - And tachypneic, no obvious retractions Cardiovascular #1: tachycardia Gastrointestinal: non tender, soft Musculoskeletal: other - Patient appears extremely weak, moves upper extremity to physical stimuli however muscle exam is difficult to obtain fully Neurologic: responsive - to physical stimuli, patient is nonverbal at this time , moves upper extremity towards physical stimuli however not following commands purposefully Skin: other - Poor skin turgor mildly anemic (Robyn Gannon DO) Procedures Critical Care Time Critical Care Time 50 minutes for critical presentation, multiple reevaluation, concern for end organ failure not including any procedural time (Robyn Gannon DO) Central Line Central Line : Consent: Emergent Central Line Lumen: triple Maximal Sterile Barrier Tech: yes cap, yes mask, yes sterile gown, yes sterile gloves, yes large sterile sheet, yes hand hygiene, yes chlorhexidine prep Central Line Postion: femoral (R) Anesthesia: Lidocaine cc's of anesthesia: 3 Complications: none Central Line Post Position: sutured Attempts: One Patient Tolerated: Well Complications: None (Robyn Gannon DO) Intubation Intubation : Consent: Emergent Intubation Method: orotracheal Tube Size (cm): 8.0 Medications: Etomidate, Succinylcholine Breath Sounds after Intubation: equal Intubation Complications: no complications Post Intubation Xray: Yes Progress/Xray Impression: et tube ok Attempts: One Patient Tolerated: Well Complications: None (Robyn Gannon DO) Medical Decision Making Diagnostic Impression: Primary Impression: Neutropenia Additional Impressions: Respiratory failure Septic shock Pneumonia Influenza B UTI (urinary tract infection) ER Course Patient is a fairly complex patient with multiple differential to consideration including but not limited to cardiac cardiopulmonary and vascular emergencies Patient presents in critical condition After initial attempts of oxygenation patient continues to deteriorate and requires airway intubation Refer to the note for full specifics Patient receiving prostration antibiotics Central line has been placed And patient in for further care in critical condition Labs Test 05/29/17 20:05 05/29/17 20:30 05/29/17 20:45 05/29/17 21:20 White Blood Count 0.9 K/UL (4.8-10.8) Red Blood Count 3.10 M/UL (4.70-6.10) Hemoglobin 8.5 G/DL (14.2-18.0) Hematocrit 27.2 % (42.0-52.0) Mean Corpuscular Volume 88 FL (80-99) Mean Corpuscular Hemoglobin 27.4 PG (27.0-31.0) Mean Corpuscular Hemoglobin Concent 31.3 G/DL (32.0-36.0) Red Cell Distribution Width 18.2 % (11.6-14.8) Platelet Count 172 K/UL (150-450) Mean Platelet Volume 4.8 FL (6.5-10.1) Neutrophils (%) (Auto) % (45.0-75.0) Lymphocytes (%) (Auto) % (20.0-45.0) Monocytes (%) (Auto) % (1.0-10.0) Eosinophils (%) (Auto) % (0.0-3.0) Basophils (%) (Auto) % (0.0-2.0) Differential Total Cells Counted 100 Neutrophils % (Manual) 22 % (45-75) Lymphocytes % (Manual) 64 % (20-45) Monocytes % (Manual) 4 % (1-10) Eosinophils % (Manual) 0 % (0-3) Basophils % (Manual) 0 % (0-2) Band Neutrophils 10 % (0-8) Nucleated Red Blood Cells 3 /100 WBC Atypical Lymphocytes Occasional Platelet Estimate Adequate Platelet Morphology Normal Hypochromasia 2+ Anisocytosis 2+ Sodium Level 141 MMOL/L (136-145) Potassium Level 2.9 MMOL/L (3.5-5.1) Chloride Level 109 MMOL/L (98-107) Carbon Dioxide Level 22 MMOL/L (21-32) Anion Gap 10 mmol/L (5-15) Blood Urea Nitrogen 31 mg/dL (7-18) Creatinine 2.0 MG/DL (0.55-1.30) Estimat Glomerular Filtration Rate mL/min (>60) Glucose Level 56 MG/DL (74-106) Lactic Acid Level 3.80 mmol/L (0.66-2.22) Calcium Level 6.0 MG/DL (8.5-10.1) Phosphorus Level 2.0 MG/DL (2.5-4.9) Magnesium Level 1.2 MG/DL (1.8-2.4) Total Bilirubin 0.7 MG/DL (0.2-1.0) Aspartate Amino Transf (AST/SGOT) 34 U/L (15-37) Alanine Aminotransferase (ALT/SGPT) 21 U/L (12-78) Alkaline Phosphatase 67 U/L (46-116) Total Creatine Kinase 467 U/L (26-308) Creatine Kinase MB 1.2 NG/ML (0.0-3.6) Creatine Kinase MB Relative Index 0.2 Troponin I 0.059 ng/mL (0.000-0.056) Pro-B-Type Natriuretic Peptide 1345 pg/mL (0-125) Total Protein 4.2 G/DL (6.4-8.2) Albumin 1.7 G/DL (3.4-5.0) Globulin 2.5 g/dL Lipase 30 U/L (73-393) Prothrombin Time 15.4 SEC (9.30-11.50) Prothromb Time International Ratio 1.5 (0.9-1.1) Activated Partial Thromboplast Time 47 SEC (23-33) Urine Color Amisha Urine Appearance Slightly cloudy Urine pH 6 (4.5-8.0) Urine Specific [place] 1.010 (1.005-1.035) Urine Protein 3+ (NEGATIVE) Urine Glucose (UA) Negative (NEGATIVE) Urine Ketones Negative (NEGATIVE) Urine Occult Blood 4+ (NEGATIVE) Urine Nitrite Negative (NEGATIVE) Urine Bilirubin Negative (NEGATIVE) Urine Ictotest Negative Urine Urobilinogen Normal MG/DL (0.0-1.0) Urine Leukocyte Esterase 1+ (NEGATIVE) Urine RBC 10-15 /HPF (0 - 0) Urine WBC 5-10 /HPF (0 - 0) Urine Squamous Epithelial Cells Occasional /LPF Urine Amorphous Sediment Many /LPF (NONE) Urine Bacteria Moderate /HPF (NONE) Arterial Blood pH 7.320 (7.350-7.450) Arterial Blood Partial Pressure CO2 35.3 mmHg (35.0-45.0) Arterial Blood Partial Pressure O2 75.3 mmHg (75.0-100.0) Arterial Blood HCO3 17.8 mmol/L (22.0-26.0) Arterial Blood Oxygen Saturation 93.0 % (92.0-98.0) Arterial Blood Base Excess -7.5 Dickson Test Positive (Robyn Gannon DO) ER Course Patient signout to me. He was admitted for sepsis/septic shock. He is getting IV fluid and blood pressure is stable. He is awaiting ICU bed. Patient further workup showed he has pneumonia, influenza and also UTI. Antibiotics given to patient. We'll admit to the ICU. Pending bed. (EMILI MAURER M.D.) Rhythm Strip Diag. Results EP Interpretation: yes Rate: 120 Rhythm: no PVC's, no ectopy, other - sinus tach (Robyn Gannon DO) Chest X-Ray Diagnostic Results Chest X-Ray Diagnostic Results #1: Chest X-Ray Ordered: Yes # of Views/Limited/Complete: 1 View Indication: Chest Pain EP Interpretation: Yes Interpretation: no consolidation, no effusion, no pneumothorax, other - Parahilar fullness Impression: Other - Parahilar fullness Electronically Signed by: Robyn Gannon DO Chest X-Ray Diagnostic Results #2: Chest X-Ray Ordered: Yes Indication: Other - Post intubation EP Interpretation: Yes Interpretation: no pneumothorax, other - ET tube appropriate increased congestion and effusion, left lower lobe atelectasis, Impression: Other - ET tube appropriate worsening effusion Electronically Signed by: Robyn Gannon DO (Robyn Gannon DO) CT/MRI/US Diagnostic Results CT/MRI/US Diagnostic Results : Impression CT chest: Refer to specifics for full detail evidence of pneumonia (Robyn Gannon DO) CT/MRI/US Diagnostic Results : Imaging Test Ordered: ct chest Impression Read by radiologist. There is a large left lower lobe and moderate right lower lobe lung consolidation. (EMILI MAURER M.D.) Last Vital Signs Date Time Temp Pulse Resp B/P (MAP) Pulse Ox O2 Delivery O2 Flow Rate FiO2 05/29/17 19:08 98.1 98 15 82/41 98 Room Air 98.1 Status: improved (Robyn Gannon DO) Status: improved (EMILI MAURER M.D.) Disposition: ADMITTED INPATIENT Condition: Critical Robyn Gannon DO May 29, 2017 19:33 EMILI MAURER M.D. May 30, 2017 01:50
[2017-05-29] MEDS ORDERED: Lidocaine 1% MPF 10mg/ml 5ml IM ONE (19:45)
[2017-05-29 19:50] VITALS: BP 129/53
[2017-05-29 20:30] VITALS: BP 179/116
[2017-05-29 20:35] LABS: HEMATOCRIT 27.2 % (42.0-52.0); HEMOGLOBIN 8.5 G/DL (14.2-18.0); MEAN CORPUSCULAR VOLUME 88 FL (80-99); PLATELET COUNT 172 K/UL (150-450); RED CELL DISTRIBUTION WIDTH 18.2 % (11.6-14.8)
[2017-05-29 20:54] LABS: APPEARANCE,URINE SLIGHTLY CLOUDY; BILIRUBIN, URINE NEGATIVE (NEGATIVE); COLOR,URINE AMBER; GLUCOSE, URINE (UA) NEGATIVE (NEGATIVE); KETONES,URINE NEGATIVE (NEGATIVE); LEUKOCYTE ESTERASE ,URINE 1+ (NEGATIVE); NITRITE,URINE NEGATIVE (NEGATIVE); PH,URINE 6 (4.5-8.0); PROTEIN,URINE 3+ (NEGATIVE); UROBILINOGEN,URINE NORMAL MG/DL (0.0-1.0)
[2017-05-29 20:57] LABS: WHITE BLOOD COUNT 0.9 K/UL (4.8-10.8)
[2017-05-29 21:04] LABS: ALANINE AMINOTRANSFERASE 21 U/L (12-78); ALKALINE PHOSPHATASE 67 U/L (46-116); ANION GAP 10 mmol/L (5-15); ASPARTATE AMINO TRANSFERASE 34 U/L (15-37); BILIRUBIN,TOTAL 0.7 MG/DL (0.2-1.0); BLOOD UREA NITROGEN 31 mg/dL (7-18); CARBON DIOXIDE 22 MMOL/L (21-32); CHLORIDE 109 MMOL/L (98-107); CKMB 1.2 NG/ML (0.0-3.6); CREATINE KINASE 467 U/L (26-308); POTASSIUM 2.9 MMOL/L (3.5-5.1); SODIUM 141 MMOL/L (136-145)
[2017-05-29] MEDS ORDERED: Piperacillin/Tazobactam 3.375 GM in NS 110 ML IVPB ONE (21:15)
[2017-05-29 21:17] LABS: INR 1.5 (0.9-1.1)
[2017-05-29 21:30] VITALS: BP 82/59
[2017-05-29] MEDS ORDERED: dilTIAZem HCl 25mg/5ml Inj IVP ONE (21:30)
[2017-05-29 21:33] LABS: ALBUMIN 1.7 G/DL (3.4-5.0)
[2017-05-29] MEDS ORDERED: Zosyn 3.375gm inj ONE (21:38)
[2017-05-29] MEDS ORDERED: Enoxaparin 60mg Inj SUBQ ONE (21:45)
[2017-05-29] MEDS ORDERED: D5 1/2NS 1,000 ML IV SCH (21:45)
[2017-05-29] MEDS ORDERED: Vancomycin 1 GM in D5W 275 ML IVPB ONE (22:15)
[2017-05-29] MEDS ORDERED: Vancomycin 1gm inj IVPB ONE (22:27)
[2017-05-29 22:30] VITALS: BP 121/75
[2017-05-29] MEDS ORDERED: LORazepam Inj 2mg/ml 1ml IV PRN (23:00)
[2017-05-29] MEDS ORDERED: Albuterol/Ipratropium 3ml neb HHN PRN (23:00)
[2017-05-29] MEDS ORDERED: Miralax 17gm pkt ORAL PRN (23:00)
[2017-05-29] MEDS ORDERED: Morphine Sulfate 4mg/ml Inj IVP PRN (23:00)
[2017-05-29 23:30] VITALS: BP 140/82
[2017-05-29] MEDS ORDERED: Vancomycin 1 GM in D5W 275 ML IV SCH (23:45)
[2017-05-30] VITALS (46 sets, daily range): BP systolic 60–112; BP diastolic 33–63
[2017-05-30] MEDS ORDERED: Oseltamivir 75mg cap ORAL ONE (01:45)
[2017-05-30] MEDS ORDERED: Amikacin Rx to dose MISC PRN (02:15)
[2017-05-30] MEDS ORDERED: Rx Monitoring Vancomycin MISC PRN (02:15)
[2017-05-30] MEDS ORDERED: AMIKACIN IV ONE (04:00)
[2017-05-30] MEDS ORDERED: NS IV ONE (04:00)
[2017-05-30] MEDS ORDERED: Amikacin 500mg/2mL Inj ONE (04:06)
[2017-05-30 05:04] LABS: HEMATOCRIT 27.8 % (42.0-52.0); HEMOGLOBIN 8.8 G/DL (14.2-18.0); MEAN CORPUSCULAR VOLUME 89 FL (80-99); PLATELET COUNT 122 K/UL (150-450); RED BLOOD COUNT 3.13 M/UL (4.70-6.10); RED CELL DISTRIBUTION WIDTH 18.9 % (11.6-14.8)
[2017-05-30 05:25] LABS: ALANINE AMINOTRANSFERASE 24 U/L (12-78); ALBUMIN 1.4 G/DL (3.4-5.0); ALBUMIN/GLOBULIN RATIO 0.5 (1.0-2.7); ALKALINE PHOSPHATASE 52 U/L (46-116); ANION GAP 14 mmol/L (5-15); ASPARTATE AMINO TRANSFERASE 45 U/L (15-37); BILIRUBIN,DIRECT 0.2 MG/DL (0.0-0.3); BILIRUBIN,TOTAL 0.4 MG/DL (0.2-1.0); BLOOD UREA NITROGEN 30 mg/dL (7-18); CARBON DIOXIDE 18 MMOL/L (21-32); CHLORIDE 109 MMOL/L (98-107); POTASSIUM 3.3 MMOL/L (3.5-5.1); SODIUM 141 MMOL/L (136-145)
[2017-05-30 05:26] LABS: CALCIUM 5.9 MG/DL (8.5-10.1)
[2017-05-30] MEDS ORDERED: Levophed 4mg/4mL Inj IV ONE (05:32)
[2017-05-30] MEDS ORDERED: Ertapenem 1 GM in NS 55 ML IV ONE (06:00)
[2017-05-30] MEDS ORDERED: Ertapenem (INVanz) 1gm Inj ONE (06:25)
[2017-05-30] MEDS: Heparin 5000 units/ml inj SUBQ SCH ×2 (09:00→20:44)
--- NOTE | 2017-05-30 09:41 | Diagnostic Imaging Report ---
Indication: Chest pain Technique: XRAY Chest 1v Comparison: 02/04/2011 Findings: Right-sided stable. Patchy bibasilar airspace opacities are noted, with more dense retrocardiac atelectasis/consolidation. Probable small left pleural effusion. No definite pneumothorax. Vertebral bodies appear more sclerotic than on prior exam, sclerotic lesions not excluded. Impression: Bilateral airspace opacities with more dense retrocardiac/left basilar consolidation. Multifocal pneumonia not excluded. Increased density of the vertebral bodies. Sclerotic bone lesion isn't excluded.
--- NOTE | 2017-05-30 09:43 | Diagnostic Imaging Report ---
Indication: Shortness of breath Technique: XRAY Chest 1v Comparison: 05/29/2018, 20:28 Findings/impression: Interval endotracheal intubation. Tip of the ET tube above the level of the clavicles, approximately 4.6 cm above the kirill. Slight advancement recommended. Additional findings without significant interval change.
--- NOTE | 2017-05-30 09:47 | Diagnostic Imaging Report ---
Indication: Dyspnea Technique: XRAY Chest 1v Comparison: 05/29/2018, 21:29 Findings: ET tube tip at the level of the clavicles, approximately 3.7 cm above the kirill. Interval placement of enteric tube which courses below level of diaphragms, tip beyond the inferior margin of the film. Heart size is stable. Bilateral opacities again noted, slightly increased at the medial right base. Additional findings without significant change compared to the prior exam. Impression: Persistent bilateral airspace disease with slight increase at the medial right base. Support devices as detailed above.
[2017-05-30] MEDS: Pantoprazole Inj IVP SCH (09:53)
--- NOTE | 2017-05-30 11:12 | History and Physical ---
History of Present Illness General Date patient seen: May 30, 2017 Reason for Hospitalization: Generalized Weakness Present Illness HPI 71 year old male with history of nasal and pharyngeal cancer is on chemotherapy presents by paramedics from home Patient has been having fever since and the patient appeared more confused and altered generally weak. Upon arrival to ER the patient was extremely hypotensive, tachycardic Patient himself is nonverbal. He was intubated and was started on Levophed and transferred to ICU. Pt looks comfortable on ventilator. (Robyn Gannon DO) Allergies: Coded Allergies: No Known Allergies (Unverified , 03/23/17) Medication History Scheduled Hydrocodone Bit/Acetaminophen 10-325* (Hydrocodon-Acetaminophn 10-325*), 1 TAB ORAL Q6H, (Reported) Lidocaine HCL 2% Jelly* (Lidocaine Jelly 2%*), 5 ML TOPIC DAILY, (Reported) Losartan/Hydrochlorothiazide (Losartan-Hctz 100-12.5 Mg Tab), 1 TAB ORAL DAILY, (Reported) Magnesium Hydroxide (Milk of Magnesia), 30 ML ORAL DAILY, (Reported) Magnesium Hydroxide* (Milk Of Magnesia*), 30 ML ORAL DAILY, (Reported) Jzysptrutwnw-Ktug-Ijisjztz,Iso (Zosyn 3.375 Gm Pre Mix-Bag), 3.375 GM IVPB EVERY 8 HOURS Scheduled PRN Morphine HCl (Morphine Sulfate ER), 30 MG ORAL Q6H PRN for For Pain, (Reported) Miscellaneous Medications Calcium Carbonate (Calcium), 500 MG PO, (Reported) Ferrous Sulfate, Dried (Iron), 159 MG PO, (Reported) Lactulose (Lactulose), 10 GM PO, (Reported) Patient History Healthcare decision maker Resuscitation status Advanced Directive on File Past Medical/Surgical History Past Medical/Surgical History: (1) Metastatic cancer Review of Systems All Other Systems: negative except mentioned in HPI Physical Exam General Appearance: cachetic Lines, tubes and drains: peripheral HEENT: normocephalic, atraumatic Neck: non-tender, normal alignment Respiratory/Chest: chest wall non-tender, rhonchi - left, rhonchi - right Cardiovascular/Chest: normal peripheral pulses, normal rate Abdomen: normal bowel sounds, non tender, soft Genitourinary/Rectal: normal genital exam, normal rectal exam Extremities: normal range of motion Skin Exam: normal pigmentation 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 analyst 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 normal Last 24 Hour Vital Signs Date Time Temp Pulse Resp B/P (MAP) Pulse Ox O2 Delivery O2 Flow Rate FiO2 05/30/17 10:44 145 35 100 18 09:54 101.3 18 09:45 146 37 96/54 92 Mechanical Ventilator 100 18 09:35 144 38 100 18 09:30 141 36 87/46 86 Mechanical Ventilator 100 05/30/17 09:16 72/44 18 09:15 138 34 72/44 90 Mechanical Ventilator 100 05/30/17 09:04 100.4 157 37 92/57 94 Mechanical Ventilator 15.0 100 05/30/17 09:00 101.3 138 38 60/50 85 Mechanical Ventilator 100 101.3 05/30/17 09:00 100 05/30/17 07:46 151 38 97/51 95 Mechanical Ventilator 15.0 100 05/30/17 07:10 84/44 18 06:50 86/58 18 06:40 86/48 18 06:35 78/43 18 06:30 88/62 05/30/18 06:30 148 37 100 18 06:30 148 37 78/53 87 Mechanical Ventilator 75 05/30/17 06:25 86/58 18 06:20 79/54 05/30/18 06:15 79/58 18 06:10 84/79 18 06:05 61/46 18 06:00 84/40 18 05:55 61/45 18 05:44 71/44 18 05:30 147 36 75/45 90 Mechanical Ventilator 75 18 04:58 148 33 75 05/30/18 04:30 149 37 79/47 85 Mechanical Ventilator 75 18 03:49 142 35 75 05/30/18 03:45 35 18/18 03:30 159 35 87/53 95 Mechanical Ventilator 75 05/30/18 03:15 35 05/30/18 03:00 36 18 02:30 100.4 152 37 87/55 97 Mechanical Ventilator 75 100.4 05/30/17 02:28 144 30 75 05/30/17 02:28 100.7 05/30/17 01:30 150 36 112/55 92 Mechanical Ventilator 75 05/30/17 00:30 150 33 101/53 91 Mechanical Ventilator 75 05/30/17 00:15 35 05/30/17 00:14 144 30 75 05/30/17 00:00 36 05/29/17 23:30 148 35 140/82 97 Mechanical Ventilator 75 05/29/17 22:55 34 05/29/17 22:40 29 05/29/17 22:30 142 30 121/75 97 Mechanical Ventilator 15.0 05/29/17 21:55 32 05/29/17 21:48 170 26 75 05/29/17 21:30 144 32 82/59 96 Mechanical Ventilator 75 05/29/17 21:26 170 85/51 05/29/17 21:25 32 05/29/17 21:18 26 05/29/17 21:00 75 05/29/17 20:30 166 30 179/116 92 Non-Rebreather 15.0 05/29/17 19:50 132 34 129/53 84 Non-Rebreather 15.0 05/29/17 19:24 100.7 154 30 70/43 77 Non-Rebreather 15.0 100.7 05/29/17 19:08 98.1 98 15 82/41 98 Room Air 98.1 Intake and Output 05/29/17 05/30/17 19:00 07:00 Intake Total 1500 ml Output Total 900 ml Balance 600 ml Intake IV Total 1500 ml Output Urine Total 900 ml Laboratory Tests Test 05/29/17 20:05 05/29/17 20:30 05/29/17 20:45 05/29/17 21:20 White Blood Count 0.9 K/UL (4.8-10.8) *L Red Blood Count 3.10 M/UL (4.70-6.10) L Hemoglobin 8.5 G/DL (14.2-18.0) L Hematocrit 27.2 % (42.0-52.0) L Mean Corpuscular Volume 88 FL (80-99) Mean Corpuscular Hemoglobin 27.4 PG (27.0-31.0) Mean Corpuscular Hemoglobin Concent 31.3 G/DL (32.0-36.0) L Red Cell Distribution Width 18.2 % (11.6-14.8) H Platelet Count 172 K/UL (150-450) Mean Platelet Volume 4.8 FL (6.5-10.1) L Neutrophils (%) (Auto) % (45.0-75.0) Lymphocytes (%) (Auto) % (20.0-45.0) Monocytes (%) (Auto) % (1.0-10.0) Eosinophils (%) (Auto) % (0.0-3.0) Basophils (%) (Auto) % (0.0-2.0) Differential Total Cells Counted 100 Neutrophils % (Manual) 22 % (45-75) L Lymphocytes % (Manual) 64 % (20-45) H Monocytes % (Manual) 4 % (1-10) Eosinophils % (Manual) 0 % (0-3) Basophils % (Manual) 0 % (0-2) Band Neutrophils 10 % (0-8) H Nucleated Red Blood Cells 3 /100 WBC Atypical Lymphocytes Occasional Platelet Estimate Adequate Platelet Morphology Normal Hypochromasia 2+ Anisocytosis 2+ Sodium Level 141 MMOL/L (136-145) Potassium Level 2.9 MMOL/L (3.5-5.1) L Chloride Level 109 MMOL/L (98-107) H Carbon Dioxide Level 22 MMOL/L (21-32) Anion Gap 10 mmol/L (5-15) Blood Urea Nitrogen 31 mg/dL (7-18) H Creatinine 2.0 MG/DL (0.55-1.30) H Estimat Glomerular Filtration Rate mL/min (>60) Glucose Level 56 MG/DL (74-106) L Lactic Acid Level 3.80 mmol/L (0.66-2.22) H Calcium Level 6.0 MG/DL (8.5-10.1) L Phosphorus Level 2.0 MG/DL (2.5-4.9) L Magnesium Level 1.2 MG/DL (1.8-2.4) L Total Bilirubin 0.7 MG/DL (0.2-1.0) Aspartate Amino Transf (AST/SGOT) 34 U/L (15-37) Alanine Aminotransferase (ALT/SGPT) 21 U/L (12-78) Alkaline Phosphatase 67 U/L (46-116) Total Creatine Kinase 467 U/L (26-308) H Creatine Kinase MB 1.2 NG/ML (0.0-3.6) Creatine Kinase MB Relative Index 0.2 Troponin I 0.059 ng/mL (0.000-0.056) Pro-B-Type Natriuretic Peptide 1345 pg/mL (0-125) H Total Protein 4.2 G/DL (6.4-8.2) L Albumin 1.7 G/DL (3.4-5.0) L Globulin 2.5 g/dL Lipase 30 U/L (73-393) L Triglycerides Level 51 MG/DL (30-150) Prothrombin Time 15.4 SEC (9.30-11.50) H Prothromb Time International Ratio 1.5 (0.9-1.1) H Activated Partial Thromboplast Time 47 SEC (23-33) H Urine Color Amisha Urine Appearance Slightly cloudy Urine pH 6 (4.5-8.0) Urine Specific [place] 1.010 (1.005-1.035) Urine Protein 3+ (NEGATIVE) H Urine Glucose (UA) Negative (NEGATIVE) Urine Ketones Negative (NEGATIVE) Urine Occult Blood 4+ (NEGATIVE) H Urine Nitrite Negative (NEGATIVE) Urine Bilirubin Negative (NEGATIVE) Urine Ictotest Negative Urine Urobilinogen Normal MG/DL (0.0-1.0) Urine Leukocyte Esterase 1+ (NEGATIVE) H Urine RBC 10-15 /HPF (0 - 0) H Urine WBC 5-10 /HPF (0 - 0) H Urine Squamous Epithelial Cells Occasional /LPF Urine Amorphous Sediment Many /LPF (NONE) H Urine Bacteria Moderate /HPF (NONE) H Arterial Blood pH 7.320 (7.350-7.450) Arterial Blood Partial Pressure CO2 35.3 mmHg (35.0-45.0) Arterial Blood Partial Pressure O2 75.3 mmHg (75.0-100.0) Arterial Blood HCO3 17.8 mmol/L (22.0-26.0) L Arterial Blood Oxygen Saturation 93.0 % (92.0-98.0) Arterial Blood Base Excess -7.5 Dickson Test Positive Test 05/29/17 22:06 05/30/17 01:59 05/30/17 04:00 05/30/17 04:30 Lactic Acid Level 5.00 mmol/L (0.66-2.22) H 5.70 mmol/L (0.66-2.22) H 5.70 mmol/L (0.66-2.22) H Arterial Blood pH 7.350 (7.350-7.450) Arterial Blood Partial Pressure CO2 26.5 mmHg (35.0-45.0) L Arterial Blood Partial Pressure O2 69.8 mmHg (75.0-100.0) L Arterial Blood HCO3 14.3 mmol/L (22.0-26.0) L Arterial Blood Oxygen Saturation 90.9 % (92.0-98.0) L Arterial Blood Base Excess -10.0 Dickson Test Positive White Blood Count 1.0 K/UL (4.8-10.8) *L Red Blood Count 3.13 M/UL (4.70-6.10) L Hemoglobin 8.8 G/DL (14.2-18.0) L Hematocrit 27.8 % (42.0-52.0) L Mean Corpuscular Volume 89 FL (80-99) Mean Corpuscular Hemoglobin 28.3 PG (27.0-31.0) Mean Corpuscular Hemoglobin Concent 31.8 G/DL (32.0-36.0) L Red Cell Distribution Width 18.9 % (11.6-14.8) H Platelet Count 122 K/UL (150-450) L Mean Platelet Volume 6.4 FL (6.5-10.1) L Neutrophils (%) (Auto) % (45.0-75.0) Lymphocytes (%) (Auto) % (20.0-45.0) Monocytes (%) (Auto) % (1.0-10.0) Eosinophils (%) (Auto) % (0.0-3.0) Basophils (%) (Auto) % (0.0-2.0) Differential Total Cells Counted 100 Neutrophils % (Manual) 42 % (45-75) L Lymphocytes % (Manual) 19 % (20-45) L Monocytes % (Manual) 4 % (1-10) Eosinophils % (Manual) 0 % (0-3) Basophils % (Manual) 0 % (0-2) Band Neutrophils 35 % (0-8) H Platelet Estimate Decreased L Platelet Morphology Normal Hypochromasia 1+ Anisocytosis 1+ Sodium Level 141 MMOL/L (136-145) Potassium Level 3.3 MMOL/L (3.5-5.1) L Chloride Level 109 MMOL/L (98-107) H Carbon Dioxide Level 18 MMOL/L (21-32) L Anion Gap 14 mmol/L (5-15) Blood Urea Nitrogen 30 mg/dL (7-18) H Creatinine 2.0 MG/DL (0.55-1.30) H Estimat Glomerular Filtration Rate mL/min (>60) Glucose Level 144 MG/DL (74-106) H Calcium Level 5.9 MG/DL (8.5-10.1) *L Total Bilirubin 0.4 MG/DL (0.2-1.0) Direct Bilirubin 0.2 MG/DL (0.0-0.3) Aspartate Amino Transf (AST/SGOT) 45 U/L (15-37) H Alanine Aminotransferase (ALT/SGPT) 24 U/L (12-78) Alkaline Phosphatase 52 U/L (46-116) Total Protein 4.4 G/DL (6.4-8.2) L Albumin 1.4 G/DL (3.4-5.0) L Globulin 3.0 g/dL Albumin/Globulin Ratio 0.5 (1.0-2.7) L Microbiology Date/Time Source Procedure Growth Status 05/29/17 20:45 Nasal Nares Influenza Types A,B Antigen (MAKAYLA) - Final Complete Height (Feet): 5 Height (Inches): 5.00 Weight (Pounds): 124 Medications Current Medications Medications (Trade) Dose Ordered Sig/Christopher Route PRN Reason Start Time Stop Time Status Last Admin Dose Admin Acetaminophen (Tylenol) 650 mg Q4H PRN ORAL fever 05/29/17 23:00 06/28/17 22:59 05/30/17 09:54 Albuterol/ Ipratropium (Albuterol/ Ipratropium) 3 ml EVERY 4 HOURS PRN HHN Shortness of Breath 05/29/17 23:00 06/03/17 22:59 Amikacin Protocol (Amikacin pharmacy to dose) 1 ea DAILY PRN MISC per protocol 05/30/17 02:15 06/29/17 02:14 Amikacin Sulfate 350 mg/Sodium Chloride 111.4 ml @ 222.8 mls/ hr Q24H IV 05/31/17 04:00 06/07/17 03:59 Dextrose/Sodium Chloride 1,000 ml @ 150 mls/hr Q6H40M IV 05/29/17 21:45 06/28/17 21:44 05/29/17 21:48 Ertapenem 1 gm/ Sodium Chloride 55 ml @ 110 mls/hr Q24H IV 05/31/17 06:00 06/05/17 05:59 Heparin Sodium (Porcine) (Heparin 5000 units/ml) 5,000 units EVERY 12 HOURS SUBQ 05/30/17 09:00 06/29/17 08:59 Lorazepam (Ativan 2mg/ml 1ml) 2 mg EVERY 2 HOURS PRN IV For Anxiety 05/29/17 23:00 06/05/17 22:59 Morphine Sulfate (Morphine Sulfate) 4 mg EVERY 4 HOURS PRN IVP Severe Pain (Pain Scale 7-10) 05/29/17 23:00 06/05/17 22:59 05/30/17 02:28 Norepinephrine Bitartrate 4 mg/ Dextrose 254 ml @ 0 mls/hr Q24H IV 05/29/17 23:00 06/28/17 22:59 05/30/17 09:16 Ondansetron HCl (Zofran) 4 mg Q6H PRN IVP Nausea & Vomiting 05/29/17 23:00 06/28/17 22:59 05/30/17 02:32 Pantoprazole (Protonix) 40 mg DAILY IVP 05/30/17 09:00 06/29/17 08:59 05/30/17 09:53 Polyethylene Glycol (Miralax) 17 gm DAILYPRN PRN ORAL Constipation 05/29/17 23:00 06/28/17 22:59 Propofol 100 ml @ 0 mls/hr Q24H IV 05/29/17 21:15 05/31/17 21:14 05/29/17 21:18 Sodium Chloride 1,000 ml @ 100 mls/hr Q10H IVLG 05/29/17 22:49 06/28/17 22:48 05/30/17 09:30 Vancomycin HCl (Rx Monitoring Vancomycin) 1 ea DAILY PRN MISC per protocol 05/30/17 02:15 06/29/17 02:14 Assessment/Plan Problem List: (1) Respiratory failure ICD Codes: J96.90 - Respiratory failure, unspecified, unspecified whether with hypoxia or hypercapnia SNOMED: 947856416 (2) Septic shock ICD Codes: A41.9 - Sepsis, unspecified organism; R65.21 - Severe sepsis with septic shock SNOMED: 70688375 (3) Pneumonia ICD Codes: J18.9 - Pneumonia, unspecified organism SNOMED: 760461063 (4) Metastatic cancer ICD Codes: C79.9 - Secondary malignant neoplasm of unspecified site SNOMED: 116531208 (5) Protein-calorie malnutrition, severe ICD Codes: E43 - Unspecified severe protein-calorie malnutrition SNOMED: 173264104 Respiratory: monitor respiratory rate, adjust FIO2, CXR Cardiac: continue pressors, continue to monitor HR/BP Renal: F/U I&O, keep IV fluid Gastrointestinal: continue feedings/current rate Endocrine: check TSH, continue sliding scale insulin Hematologic: monitor H/H, transfuse if hgb<8.5 Neurologic: PRN Ativan, keep patient comfortable Affect: PRN ativan Prophylaxis: Heparin Time Spent (Minutes): 40 Discussed with: nurses, consultants, manager case Sanju Mahajan MD May 30, 2017 11:12
[2017-05-30] MEDS ORDERED: Calcium Gluconate 10% 1 GM in NS 110 ML IVPB ONE (13:00)
[2017-05-30] MEDS ORDERED: D5NS 1,000 ML IV SCH (14:00)
--- NOTE | 2017-05-30 15:36 | Diagnostic Imaging Report ---
Indication: Shortness of breath. History of nasopharyngeal carcinoma. Technique: CT pulmonary angiogram performed utilizing automated exposure control with intravenous contrast. Axial, sagittal and coronal reconstructions were obtained. 3-D volumetric reconstructions were also performed. CT dose: Total DLP 526.47 mGycm; CTDI vol 14.74 mGy Comparison: None Findings: Adequate opacification of the pulmonary arteries was achieved. There is no pulmonary embolism. Main pulmonary artery is normal in caliber. No evidence of thoracic aortic dissection. Mild atherosclerotic vascular calcifications seen. There is conventional branching anatomy of the great vessels. Heart size within normal limits. There is fluid in the cervical esophagus. Endotracheal tube is in place, tip terminates at the level of the clavicles. There is dense consolidation involving almost all of the left lower lobe. This is highly concerning for pneumonia. Given history of malignancy underlying mass cannot entirely be excluded. Additional areas of dense airspace consolidation in the right lower lobe and some lateral areas of scattered nodular densities and tree-in-bud pattern. There is a trace left pleural effusion. There is no pneumothorax. There is diffuse sclerosis of the bony structures most likely representing bony metastases given history of malignancy. IMPRESSION: Dense airspace consolidation involving almost all of the left lower lobe with additional scattered bilateral areas of airspace consolidation and some scattered nodular opacities. Findings may represent multifocal pneumonia. Mass/pulmonary metastasis in the consolidated lung not excluded, especially given history of malignancy. Follow-up exam after appropriate treatment recommended. No evidence of pulmonary embolism or thoracic aortic dissection. Fluid in the cervical esophagus. This is considered a risk for aspiration. Diffuse heterogeneous sclerosis throughout the visualized osseous structures raising question for bony metastases. This corresponds with the statrad preliminary report. The CT scanner at [facility] is accredited by the [employer] and the scans are performed using protocols designed to limit radiation exposure to as low as reasonably achievable to attain images of sufficient resolution adequate for diagnostic evaluation.
[2017-05-30] MEDS ORDERED: NS 275ml ONE (16:30)
[2017-05-30] MEDS ORDERED: Tubing IV Secondary IV ONE (16:30)
[2017-05-30] MEDS: D5NS 1,000 ML IV SCH ×2 (17:30→23:58)
--- NOTE | 2017-05-30 18:21 | Consultation ---
Consult Note Consult Note asked to eval for renal failure- Patient in ICU intubated HPI Patient presents by paramedics after family called paramedics Patient has history of nasal and pharyngeal cancer is on chemotherapy last chemotherapy was about last week Patient has been having fever since Family reports of Tylenol was bringing the temperature down However as the patient appeared more confused and altered As he appeared generally weak her medics were contacted Upon arrival the patient is extremely hypotensive, tachycardic and hypotensive Is in critical condition Patient himself is nonverbal with us at this time limits the history of present illness examined data reviewed Assessment/Plan - Acute renal failure- - Respiratory failure -Septic shock - Pneumonia , Influenza B - Metastatic cancer - Protein-calorie malnutrition, severe Pulm support minitor renal parameters avoid Nephrotoxics per orders HEATHER YU May 30, 2017 18:20
[2017-05-30] MEDS: Phenylephrine 50 MG in D5W 245 ML IV SCH ×2 (18:40→23:43)
[2017-05-30] MEDS ORDERED: Dyna-Hex 2% Top Sol 2oz TOPIC SCH (20:00)
[2017-05-30] MEDS ORDERED: Norepinephrine Bitartrate 8 MG in D5W 500ml 492 ML IV SCH (23:00)
[2017-05-31] VITALS (33 sets, daily range): BP systolic 32–96; BP diastolic 13–52
[2017-05-31] MEDS ORDERED: Sodium Bicarbonate 150 ML in D5W 1000ml 1,000 ML IV SCH (03:00)
[2017-05-31] MEDS ORDERED: Sodium Bicarbonate 8.4% 50ml Inj ONE (03:07)
[2017-05-31] MEDS ORDERED: Phenylephrine 10mg/ml 5ml vial IV ONE (03:33)
[2017-05-31] MEDS: Phenylephrine 50 MG in D5W 245 ML IV SCH ×3 (03:37→11:49)
[2017-05-31] MEDS ORDERED: Amikacin 350 MG in NS 110 ML IV SCH (04:00)
[2017-05-31] MEDS ORDERED: Ertapenem 1 GM in NS 55 ML IV SCH (06:00)
[2017-05-31] MEDS: D5NS 1,000 ML IV SCH (06:50)
[2017-05-31] MEDS ORDERED: Dextrose 10% 1,000 ML IV SCH (08:00)
[2017-05-31] MEDS: Heparin 5000 units/ml inj SUBQ SCH (08:20)
[2017-05-31] MEDS: Pantoprazole Inj IVP SCH (08:20)
--- NOTE | 2017-05-31 10:13 | Emergency Room Report ---
History of Present Illness General Chief Complaint: Generalized Weakness Source: Family Member, Medical Record Present Illness Allergies: Coded Allergies: No Known Allergies (Unverified , 03/23/17) Nursing Documentation-[facility] Past Medical History: No History, Except For Hx Hypertension: Yes Hx Cancer: Yes Physical Exam Vital Signs Date Time Temp Pulse Resp B/P (MAP) Pulse Ox O2 Delivery O2 Flow Rate FiO2 05/29/17 19:08 98.1 98 15 82/41 98 Room Air 98.1 05/29/17 19:24 15.0 05/29/17 21:00 75 Medical Decision Making Diagnostic Impression: Primary Impression: Neutropenia Additional Impressions: Influenza B Septic shock Respiratory failure UTI (urinary tract infection) Pneumonia ER Course The patient was noted to have asystolic arrest. Patient was given epinephrine as well as bicarbonate with return of spontaneous circulation. Patient was noted to have adequate blood pressure as well as a rapid pulse subsequently. The patient was maintained on a ventilator. The physician was to be notified by staff. See code sheet for medications Last Vital Signs Date Time Temp Pulse Resp B/P (MAP) Pulse Ox O2 Delivery O2 Flow Rate FiO2 05/31/17 09:15 102 27 60 05/31/17 07:31 57/26 05/31/17 07:00 90 Mechanical Ventilator 05/31/17 04:00 98.7 98.7 05/30/17 09:04 15.0 Disposition: ADMITTED INPATIENT Condition: Critical Referrals: NOT CHOSEN YANG/,REFERRING (PCP) Juancho Miller May 31, 2017 10:13
--- NOTE | 2017-05-31 10:34 | Pulmonolgy Critical Care Note ---
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 Renal: F/U I&O, keep IV fluid Gastrointestinal: continue feedings/current rate Endocrine: check TSH, check HgA1C, continue sliding scale insulin Hematologic: transfuse if hgb<8.5 Neurologic: PRN Ativan, keep patient comfortable Affect: PRN ativan Prophylaxis: Protonix Disposition: keep in ICU Notes Reviewed: grocery stocker, cardio, renal Discussed with: nurses, major case detectivedistribution manager - Objective Last 24 Hour Vital Signs Date Time Temp Pulse Resp B/P (MAP) Pulse Ox O2 Delivery O2 Flow Rate FiO2 05/31/17 09:15 102 27 60 05/31/17 07:31 110 57/26 05/31/17 07:30 118 27 70 05/31/17 07:00 114 27 65/26 90 Mechanical Ventilator 70 05/31/17 06:59 69/30 05/31/17 06:30 120 30 69/30 97 Mechanical Ventilator 70 05/31/17 06:00 119 31 67/34 93 Mechanical Ventilator 70 05/31/17 05:30 120 37 73/35 91 Mechanical Ventilator 70 05/31/17 05:14 121 32 70 05/31/17 05:00 121 37 74/39 94 Mechanical Ventilator 70 05/31/17 05:00 74/39 05/31/17 04:30 112 37 76/33 90 Mechanical Ventilator 70 05/31/17 04:21 76/42 05/31/17 04:00 70 05/31/17 04:00 89/47 05/31/17 04:00 133 05/31/17 04:00 98.7 129 35 76/42 86 Mechanical Ventilator 70 98.7 05/31/17 03:37 130 73/36 05/31/17 03:30 129 37 73/36 86 Mechanical Ventilator 70 05/31/17 03:00 132 37 74/40 86 Mechanical Ventilator 70 05/31/17 03:00 80/41 05/31/17 02:31 135 37 70 05/31/17 02:30 135 37 83/45 86 Mechanical Ventilator 70 05/31/17 02:15 134 36 96/44 90 Mechanical Ventilator 90 3/19/18 02:01 65/31 3/19/18 02:00 133 35 93/49 77 Mechanical Ventilator 90 319/18 02:00 96/44 319/18 01:45 134 37 65/31 82 Mechanical Ventilator 90 319/18 01:30 135 37 68/46 82 Mechanical Ventilator 90 319/18 01:15 136 38 84/51 82 Mechanical Ventilator 90 3/18 01:13 135 36 90 05/31/18 01:00 136 38 69/50 83 Mechanical Ventilator 90 319/18 01:00 84/51 319/18 00:30 139 38 95/52 82 Mechanical Ventilator 90 05/31/18 00:09 140 05/31/18 00:00 98.5 138 36 93/52 83 Mechanical Ventilator 90 98.5 19/18 00:00 90 18 00:00 93/52 3/18/18 23:45 135 36 87/43 82 Mechanical Ventilator 90 18/18 23:43 135 77/33 3/18/18 23:41 77/33 3/18/18 23:30 142 37 77/33 82 Mechanical Ventilator 90 18/18 23:09 144 38 90 318/18 23:00 145 38 80/57 93 Mechanical Ventilator 90 18/18 23:00 80/57 3/18/18 22:30 147 38 94/55 95 Mechanical Ventilator 90 3/18/18 22:00 108/56 3/18/18 22:00 149 38 108/56 93 Mechanical Ventilator 90 318/18 21:30 148 36 96/57 93 Mechanical Ventilator 90 3/18/18 21:21 104/61 3/18/18 21:15 147 35 104/49 86 Mechanical Ventilator 90 3/18/18 21:06 147 29 90 3/18/18 21:00 149 35 104/61 90 Mechanical Ventilator 90 3/18/18 21:00 104/61 3/18/18 20:45 86/51 3/18/18 20:45 147 34 86/51 83 Mechanical Ventilator 90 3/18/18 20:30 147 34 102/52 87 Mechanical Ventilator 90 3/18/18 20:15 87/49 3/18/18 20:15 148 35 87/49 96 Mechanical Ventilator 90 3/18/18 20:00 98.5 147 34 92/47 86 Mechanical Ventilator 90 98.5 3/18/18 20:00 90 3/18/18 20:00 92/47 3/18/18 19:45 147 34 100/63 88 Mechanical Ventilator 90 3/18/18 19:30 146 34 100/63 97 Mechanical Ventilator 90 3/18/18 19:06 83/42 3/18/18 19:03 149 3/18/18 19:00 149 33 100/52 96 Mechanical Ventilator 90 3/18/18 18:52 145 36 90 3/18/18 18:45 147 33 83/42 100 Mechanical Ventilator 90 3/18/18 18:40 145 76/46 3/18/18 18:30 145 33 76/46 99 Mechanical Ventilator 90 3/18/18 18:00 143 33 91/48 100 Mechanical Ventilator 90 3/18/18 17:31 98.3 3/18/18 17:30 98.3 151 35 102/59 90 Mechanical Ventilator 90 98.3 3/18/18 17:00 149 35 102/59 88 Mechanical Ventilator 90 3/18/18 16:54 82/59 3/18/18 16:38 153 38 90 3/18/18 16:32 101.0 3/18/18 16:30 148 35 82/59 88 Mechanical Ventilator 90 3/18/18 16:00 90 3/18/18 16:00 150 3/18/18 16:00 101.0 156 35 106/56 93 Mechanical Ventilator 90 101.0 3/18/18 15:30 150 35 85/47 92 Mechanical Ventilator 100 3/18/18 15:00 146 35 80/47 92 Mechanical Ventilator 100 3/18/18 14:48 146 35 90 3/18/18 14:30 145 34 81/56 93 Mechanical Ventilator 100 3/18/18 14:14 82/53 3/18/18 14:00 148 35 82/53 96 Mechanical Ventilator 100 3/18/18 13:30 155 36 83/55 96 Mechanical Ventilator 100 3/18/18 13:00 99.7 156 33 82/52 98 Mechanical Ventilator 100 99.7 3/18/18 12:40 156 36 100 3/18/18 12:30 156 33 82/50 98 Mechanical Ventilator 100 3/18/18 12:00 144 3/18/18 12:00 154 30 96/61 92 Mechanical Ventilator 100 05/30/17 11:46 59/47 05/30/17 11:30 155 30 83/53 92 Mechanical Ventilator 100 05/30/17 11:00 146 35 71/50 90 Mechanical Ventilator 100 05/30/17 10:44 145 35 100 Status: awake Condition: critical HEENT: atraumatic Lungs: clear Heart: HR/BP unstable Abdomen: soft, active bowel sounds Extremities: no C/C/E Decubiti: stage Micro: Microbiology Date/Time Source Procedure Growth Status 05/29/17 20:00 Blood Blood Culture - Preliminary NO GROWTH AFTER 24 HOURS Resulted 05/29/17 19:45 Blood Blood Culture - Preliminary NO GROWTH AFTER 24 HOURS Resulted 05/30/17 07:39 Nasal Nares MRSA Culture - Final Staphylococcus Aureus - Mrsa Complete 05/29/17 20:45 Nasal Nares Influenza Types A,B Antigen (MAKAYLA) - Final Complete 05/29/17 20:45 Urine,Clean Catch Urine Culture - Preliminary NO GROWTH AFTER 24 HOURS Resulted Accucheck: 97 Critical Care - Subjective ROS Limited/Unobtainable: No Interval Events: worsening hemodynamics, FI02: 60 Vent Support Breath Rate: 26 Vent Support Mode: AC Vent Tidal Volume: 550 Sputum Amount: Small PEEP: 5.0 PIP: 34 Fluids: d10 + 3 am p of bicarb at 150 Drips: Neosynephrine, Levophed I&O: Intake and Output 05/30/17 05/31/17 19:00 07:00 Intake Total 1742.1 ml 4224.0 ml Output Total 430 ml 35 ml Balance 1312.1 ml 4189.0 ml Intake IV Total 1742.1 ml 4184.0 ml Other 40 ml Output Urine Total 430 ml 35 ml ET-Tube: 8.0 ET Position: 22 Labs: Laboratory Tests Test 05/30/17 19:00 05/31/17 01:06 05/31/17 06:00 05/31/17 07:50 Urine Random Sodium 27 mmol/L (20-110) Arterial Blood pH 6.997 (7.350-7.450) 6.880 (7.350-7.450) Arterial Blood Partial Pressure CO2 22.4 mmHg (35.0-45.0) *L 29.9 mmHg (35.0-45.0) L Arterial Blood Partial Pressure O2 124.2 mmHg (75.0-100.0) H 198.3 mmHg (75.0-100.0) H Arterial Blood HCO3 5.4 mmol/L (22.0-26.0) L 5.5 mmol/L (22.0-26.0) L Arterial Blood Oxygen Saturation 96.8 % (92.0-98.0) 98.8 % (92.0-98.0) H Arterial Blood Base Excess -24.3 -26.2 Dickson Test Positive Positive Urine Eosinophils None seen Sanju Mahajan MD May 31, 2017 10:34
--- NOTE | 2017-05-31 10:43 | Consultation ---
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 Upon arrival of EMS patient was found to have profound hypotension, tachycardia. In ED, patient intubated, started on levophed and transferred to ICU. This am patient unable to get labs and central line with no blood returned. He coded this am: Asystole code s/p CPR with ROSC. He is curretnly maxed on 2 pressors. Febrile up to 101.3, now afebrile in >12hrs. Neutropenic, ANC 490. Found to be Influenza B+ and multifocal PNA. Of note patient admitted here on 01/2017 with neutropenic fever, mucositis. Was treated here initially with Zosyn. Also CT showed findings of sinus disease with no bony erosions and I recommend ENT evaluation to evaluate for possible mold sinusitis but patient was transferred to another hospital; unknown if work up was done there. Allergies: Coded Allergies: No Known Allergies (Unverified , 03/23/17) Medication History Scheduled Hydrocodone Bit/Acetaminophen 10-325* (Hydrocodon-Acetaminophn 10-325*), 1 TAB ORAL Q6H, (Reported) Lidocaine HCL 2% Jelly* (Lidocaine Jelly 2%*), 5 ML TOPIC DAILY, (Reported) Losartan/Hydrochlorothiazide (Losartan-Hctz 100-12.5 Mg Tab), 1 TAB ORAL DAILY, (Reported) Magnesium Hydroxide (Milk of Magnesia), 30 ML ORAL DAILY, (Reported) Magnesium Hydroxide* (Milk Of Magnesia*), 30 ML ORAL DAILY, (Reported) Wbjgymlcmoie-Shwf-Wcpanxqw,Iso (Zosyn 3.375 Gm Pre Mix-Bag), 3.375 GM IVPB EVERY 8 HOURS Scheduled PRN Morphine HCl (Morphine Sulfate ER), 30 MG ORAL Q6H PRN for For Pain, (Reported) Miscellaneous Medications Calcium Carbonate (Calcium), 500 MG PO, (Reported) Ferrous Sulfate, Dried (Iron), 159 MG PO, (Reported) Lactulose (Lactulose), 10 GM PO, (Reported) Patient History Healthcare decision maker Resuscitation status Advanced Directive on File Patient History Narrative Pmhx: as above Shx: unable to obtain Fhx: non contributory Review of Systems ROS Narrative unable to obtain Physical Exam Physical Exam Narrative General Appearance: cachetic Lines, tubes and drains: peripheral HEENT: normocephalic, atraumatic Neck: non-tender, normal alignment Respiratory/Chest: chest wall non-tender, rhonchi - left, rhonchi - right Cardiovascular/Chest: normal peripheral pulses, normal rate Abdomen: normal bowel sounds, non tender, soft Extremities: normal range of motion Skin Exam: normal pigmentation Last 24 Hour Vital Signs Date Time Temp Pulse Resp B/P (MAP) Pulse Ox O2 Delivery O2 Flow Rate FiO2 05/31/17 09:15 102 27 60 05/31/17 07:31 110 57/26 05/31/17 07:30 118 27 70 05/31/17 07:00 114 27 65/26 90 Mechanical Ventilator 70 05/31/17 06:59 69/30 05/31/17 06:30 120 30 69/30 97 Mechanical Ventilator 70 05/31/17 06:00 119 31 67/34 93 Mechanical Ventilator 70 05/31/17 05:30 120 37 73/35 91 Mechanical Ventilator 70 05/31/17 05:14 121 32 70 05/31/17 05:00 121 37 74/39 94 Mechanical Ventilator 70 05/31/17 05:00 74/39 05/31/17 04:30 112 37 76/33 90 Mechanical Ventilator 70 05/31/17 04:21 76/42 05/31/17 04:00 70 05/31/17 04:00 89/47 05/31/17 04:00 133 05/31/17 04:00 98.7 129 35 76/42 86 Mechanical Ventilator 70 98.7 05/31/17 03:37 130 73/36 05/31/17 03:30 129 37 73/36 86 Mechanical Ventilator 70 05/31/17 03:00 132 37 74/40 86 Mechanical Ventilator 70 05/31/17 03:00 80/41 05/31/17 02:31 135 37 70 05/31/17 02:30 135 37 83/45 86 Mechanical Ventilator 70 05/31/17 02:15 134 36 96/44 90 Mechanical Ventilator 90 3/19/18 02:01 65/31 319/18 02:00 133 35 93/49 77 Mechanical Ventilator 90 319/18 02:00 96/44 3/18 01:45 134 37 65/31 82 Mechanical Ventilator 90 319/18 01:30 135 37 68/46 82 Mechanical Ventilator 90 319/18 01:15 136 38 84/51 82 Mechanical Ventilator 90 3/18 01:13 135 36 90 3/18 01:00 136 38 69/50 83 Mechanical Ventilator 90 319/18 01:00 84/51 319/18 00:30 139 38 95/52 82 Mechanical Ventilator 90 05/31/18 00:09 140 05/31/18 00:00 98.5 138 36 93/52 83 Mechanical Ventilator 90 98.5 05/31/18 00:00 90 05/31/18 00:00 93/52 318/18 23:45 135 36 87/43 82 Mechanical Ventilator 90 18/18 23:43 135 77/33 318/18 23:41 77/33 3/18/18 23:30 142 37 77/33 82 Mechanical Ventilator 90 18/18 23:09 144 38 90 3/18/18 23:00 145 38 80/57 93 Mechanical Ventilator 90 18/18 23:00 80/57 3/18/18 22:30 147 38 94/55 95 Mechanical Ventilator 90 318/18 22:00 108/56 3/18/18 22:00 149 38 108/56 93 Mechanical Ventilator 90 318/18 21:30 148 36 96/57 93 Mechanical Ventilator 90 3/18/18 21:21 104/61 3/18/18 21:15 147 35 104/49 86 Mechanical Ventilator 90 3/18/18 21:06 147 29 90 3/18/18 21:00 149 35 104/61 90 Mechanical Ventilator 90 3/18/18 21:00 104/61 3/18/18 20:45 86/51 3/18/18 20:45 147 34 86/51 83 Mechanical Ventilator 90 3/18/18 20:30 147 34 102/52 87 Mechanical Ventilator 90 3/18/18 20:15 87/49 3/18/18 20:15 148 35 87/49 96 Mechanical Ventilator 90 3/18/18 20:00 98.5 147 34 92/47 86 Mechanical Ventilator 90 98.5 3/18/18 20:00 90 318/18 20:00 92/47 3/18/18 19:45 147 34 100/63 88 Mechanical Ventilator 90 3/18/18 19:30 146 34 100/63 97 Mechanical Ventilator 90 3/18/18 19:06 83/42 3/18/18 19:03 149 3/18/18 19:00 149 33 100/52 96 Mechanical Ventilator 90 3/18/18 18:52 145 36 90 3/18/18 18:45 147 33 83/42 100 Mechanical Ventilator 90 3/18/18 18:40 145 76/46 3/18/18 18:30 145 33 76/46 99 Mechanical Ventilator 90 3/18/18 18:00 143 33 91/48 100 Mechanical Ventilator 90 318/18 17:31 98.3 3/18/18 17:30 98.3 151 35 102/59 90 Mechanical Ventilator 90 98.3 318/18 17:00 149 35 102/59 88 Mechanical Ventilator 90 18/18 16:54 82/59 318/18 16:38 153 38 90 318/18 16:32 101.0 318/18 16:30 148 35 82/59 88 Mechanical Ventilator 90 18/18 16:00 90 18/18 16:00 150 318/18 16:00 101.0 156 35 106/56 93 Mechanical Ventilator 90 101.0 18/18 15:30 150 35 85/47 92 Mechanical Ventilator 100 18/18 15:00 146 35 80/47 92 Mechanical Ventilator 100 18/18 14:48 146 35 90 318/18 14:30 145 34 81/56 93 Mechanical Ventilator 100 18/18 14:14 82/53 3/18/18 14:00 148 35 82/53 96 Mechanical Ventilator 100 318/18 13:30 155 36 83/55 96 Mechanical Ventilator 100 318/18 13:00 99.7 156 33 82/52 98 Mechanical Ventilator 100 99.7 318/18 12:40 156 36 100 318/18 12:30 156 33 82/50 98 Mechanical Ventilator 100 318/18 12:00 144 318/18 12:00 154 30 96/61 92 Mechanical Ventilator 100 05/30/17 11:46 59/47 05/30/17 11:30 155 30 83/53 92 Mechanical Ventilator 100 05/30/17 11:00 146 35 71/50 90 Mechanical Ventilator 100 05/30/17 10:44 145 35 100 05/30/17 10:30 146 35 83/51 96 Mechanical Ventilator 100 Intake and Output 05/30/17 05/31/17 19:00 07:00 Intake Total 1742.1 ml 4224.0 ml Output Total 430 ml 35 ml Balance 1312.1 ml 4189.0 ml Intake IV Total 1742.1 ml 4184.0 ml Other 40 ml Output Urine Total 430 ml 35 ml Laboratory Tests Test 05/30/17 19:00 05/31/17 01:06 05/31/17 06:00 05/31/17 07:50 Urine Random Sodium 27 mmol/L (20-110) Arterial Blood pH 6.997 (7.350-7.450) 6.880 (7.350-7.450) Arterial Blood Partial Pressure CO2 22.4 mmHg (35.0-45.0) *L 29.9 mmHg (35.0-45.0) L Arterial Blood Partial Pressure O2 124.2 mmHg (75.0-100.0) H 198.3 mmHg (75.0-100.0) H Arterial Blood HCO3 5.4 mmol/L (22.0-26.0) L 5.5 mmol/L (22.0-26.0) L Arterial Blood Oxygen Saturation 96.8 % (92.0-98.0) 98.8 % (92.0-98.0) H Arterial Blood Base Excess -24.3 -26.2 Dickson Test Positive Positive Urine Eosinophils None seen Height (Feet): 5 Height (Inches): 5.00 Weight (Pounds): 132 Medications Current Medications Medications (Trade) Dose Ordered Sig/Christopher Route PRN Reason Start Time Stop Time Status Last Admin Dose Admin Acetaminophen (Tylenol) 650 mg Q4H PRN ORAL fever 05/29/17 23:00 06/28/17 22:59 05/30/17 16:32 Albuterol/ Ipratropium (Albuterol/ Ipratropium) 3 ml EVERY 4 HOURS PRN HHN Shortness of Breath 05/29/17 23:00 06/03/17 22:59 Amikacin Protocol (Amikacin pharmacy to dose) 1 ea DAILY PRN MISC per protocol 05/30/17 02:15 06/29/17 02:14 Amikacin Sulfate 350 mg/Sodium Chloride 111.4 ml @ 222.8 mls/ hr Q24H IV 05/31/17 04:00 06/07/17 03:59 05/31/17 03:32 Chlorhexidine Gluconate (Susie-Hex 2%) 1 applic DAILY@2000 TOPIC 05/30/17 20:00 06/29/17 19:59 05/30/17 20:01 Dextrose (Dextrose 50%) 50 ml PRN PRN IV BS<60 05/30/17 17:00 06/29/17 16:59 05/31/17 04:15 Ertapenem 1 gm/ Sodium Chloride 55 ml @ 110 mls/hr Q24H IV 05/31/17 06:00 06/05/17 05:59 05/31/17 05:40 Heparin Sodium (Porcine) (Heparin 5000 units/ml) 5,000 units EVERY 12 HOURS SUBQ 05/30/17 09:00 06/29/17 08:59 05/30/17 20:44 Lorazepam (Ativan 2mg/ml 1ml) 2 mg EVERY 2 HOURS PRN IV For Anxiety 05/29/17 23:00 06/05/17 22:59 05/30/17 12:24 Morphine Sulfate (Morphine Sulfate) 4 mg EVERY 4 HOURS PRN IVP Severe Pain (Pain Scale 7-10) 05/29/17 23:00 06/05/17 22:59 05/30/17 02:28 Norepinephrine Bitartrate 4 mg/ Dextrose 254 ml @ 0 mls/hr Q24H IV 05/29/17 23:00 06/28/17 22:59 05/31/17 06:59 Ondansetron HCl (Zofran) 4 mg Q6H PRN IVP Nausea & Vomiting 05/29/17 23:00 06/28/17 22:59 05/30/17 02:32 Oseltamivir Phosphate (Tamiflu) 30 mg QHS ORAL 05/30/17 21:00 06/02/17 21:01 05/30/17 20:43 Pantoprazole (Protonix) 40 mg DAILY IVP 3/18/18 09:00 06/29/17 08:59 05/31/17 08:20 Phenylephrine HCl 50 mg/Dextrose 250 ml @ 0 mls/hr Q24H IV 05/30/17 18:00 06/29/17 17:59 05/31/17 07:31 Polyethylene Glycol (Miralax) 17 gm DAILYPRN PRN ORAL Constipation 05/29/17 23:00 06/28/17 22:59 Sodium Bicarbonate 150 ml/Dextrose 1,150 ml @ 150 mls/hr Q7H40M IV 05/31/17 11:00 06/30/17 10:59 Vancomycin HCl (Rx Monitoring Vancomycin) 1 ea DAILY PRN MISC per protocol 05/30/17 02:15 06/29/17 02:14 Assessment/Plan Assessment/Plan Abx: IV Vancomycin 05/29- Ertapenem 05/30- Amikacin 05/30- Tamiflu 05/30- Zosyn x1 05/29 Assessment: Septic Shock 2ry to Influenza B and PNA- r/o MRSA, r/o fungal (ie aspergillosis , mucor), r/o bacteremia -CXR 05/29: Bilateral airspace opacities with more dense retrocardiac/left basilar consolidation. Multifocal pneumonia not excluded. -CTA chest: Dense airspace consolidation involving almost all of the left lower lobe with additional scattered bilateral areas of airspace consolidation and some scattered nodular opacities. Findings may represent multifocal pneumonia. Mass/pulmonary metastasis in the consolidated lung not excluded, especially given history of malignancy. No evidence of pulmonary embolism or thoracic aortic dissection. Fluid in the cervical esophagus. This is considered a risk for aspiration. Diffuse heterogeneous sclerosis throughout the visualized osseous structures raising question for bony metastases. 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 Density of central maxillary sinus contents raises possibility of fungal infection. Right axillary sinus air- fluid level, raises concern for acute sinusitis HTN Plan: -Continue empiric IV Vancomycin #3, Amikacin #2 and switch Ertapenem #2 to Meropenem pending cultures -Add empiric Amphotericin B for fungal coverage -when stable will repeat CT sinus to re-evaluate sinus disease as there was suggestion of fungal disease on prior CT in 01/2017 -Check Cocci Ab, CrAg, histoplasma ag urine/ab, fungal sputum cx, Fungal Bcx, Asp ag, 1,3 B-d glucan -f/u cx -Monitor CBC/CMP, temperatures -poor px as immunocompromised, advance age, multiple comorbidities. Address goals of care. Thank you for this consultation. Will continue to follow along with you. Discussed with ROSETTA. Courtney Fowler M.D. May 31, 2017 10:43
[2017-05-31] MEDS ORDERED: Amphotericin B Liposome 50mg inj IV SCH (10:45)
[2017-05-31] MEDS ORDERED: DEXTROSE IV SCH (11:00)
[2017-05-31] MEDS ORDERED: SODIUM BICARBONATE IV SCH (11:00)
--- NOTE | 2017-05-31 11:08 | Diagnostic Imaging Report ---
Indication: Dyspnea Technique: One view of the chest Comparison: 05/30/2017 Findings: Stable satisfactory position of endotracheal and nasogastric tube. Slightly improved left pleural effusion. Bilateral diffuse extensive interstitial and airspace infiltrates versus edema persist, probably stable on the left, perhaps slightly worse on the right. Impression: Suggestion of slight improvement of left pleural effusion, over one day Stable or slightly increased right, stable left pulmonary parenchymal disease
[2017-05-31] MEDS: Meropenem 2 GM in NS 55 ML IVPB SCH (11:48)
--- NOTE | 2017-05-31 12:30 | Nephrology Progress Note ---
Assessment/Plan Problem List: (1) Septic shock (2) Respiratory failure (3) Acute renal failure (ARF) Assessment - Acute renal failure- - Respiratory failure -Septic shock trendelenberg position - Pneumonia , Influenza B - Metastatic cancer - Protein-calorie malnutrition, severe Plan lab pending Pulm support minitor renal parameters avoid Nephrotoxics per orders Subjective ROS Limited/Unobtainable: Yes Objective Objective Last 24 Hour Vital Signs Date Time Temp Pulse Resp B/P (MAP) Pulse Ox O2 Delivery O2 Flow Rate FiO2 05/31/17 12:13 103 26 60 05/31/17 12:00 60 05/31/17 12:00 100.2 106 22 69/21 94 Mechanical Ventilator 70 100.2 05/31/17 11:49 105 54/24 05/31/17 11:32 102.8 05/31/17 11:30 105 22 69/21 90 Mechanical Ventilator 70 05/31/17 11:04 112 27 60 05/31/17 11:00 108 22 36/13 95 Mechanical Ventilator 70 05/31/17 10:30 112 25 39/22 96 Mechanical Ventilator 70 05/31/17 10:30 60 05/31/17 10:03 100 05/31/17 10:00 125 26 57/24 96 Mechanical Ventilator 70 05/31/17 09:30 88 25 57/24 95 Mechanical Ventilator 70 05/31/17 09:15 102 27 60 05/31/17 09:00 111 26 38/13 95 Mechanical Ventilator 70 05/31/17 08:30 113 26 56/31 96 Mechanical Ventilator 70 05/31/17 08:00 112 05/31/17 08:00 70 05/31/17 08:00 121 27 62/28 96 Mechanical Ventilator 70 05/31/17 07:31 110 57/26 05/31/17 07:30 102.8 114 27 68/35 90 Mechanical Ventilator 70 102.8 05/31/17 07:30 118 27 70 05/31/17 07:00 114 27 65/26 90 Mechanical Ventilator 70 05/31/17 06:59 69/30 05/31/17 06:30 120 30 69/30 97 Mechanical Ventilator 70 05/31/17 06:00 119 31 67/34 93 Mechanical Ventilator 70 05/31/17 05:30 120 37 73/35 91 Mechanical Ventilator 70 05/31/17 05:14 121 32 70 3/19/18 05:00 121 37 74/39 94 Mechanical Ventilator 70 05/31/18 05:00 74/39 3/18 04:30 112 37 76/33 90 Mechanical Ventilator 70 05/31/18 04:21 76/42 319/18 04:00 70 05/31/18 04:00 89/47 05/31/18 04:00 133 05/31/18 04:00 98.7 129 35 76/42 86 Mechanical Ventilator 70 98.7 18 03:37 130 73/36 19/18 03:30 129 37 73/36 86 Mechanical Ventilator 70 05/31/18 03:00 132 37 74/40 86 Mechanical Ventilator 70 05/31/18 03:00 80/41 18 02:31 135 37 70 05/31/18 02:30 135 37 83/45 86 Mechanical Ventilator 70 18 02:15 134 36 96/44 90 Mechanical Ventilator 90 05/31/17 02:01 65/31 05/31/17 02:00 133 35 93/49 77 Mechanical Ventilator 90 18 02:00 96/44 18 01:45 134 37 65/31 82 Mechanical Ventilator 90 18 01:30 135 37 68/46 82 Mechanical Ventilator 90 18 01:15 136 38 84/51 82 Mechanical Ventilator 90 18 01:13 135 36 90 18 01:00 136 38 69/50 83 Mechanical Ventilator 90 18 01:00 84/51 18 00:30 139 38 95/52 82 Mechanical Ventilator 90 18 00:09 140 1918 00:00 98.5 138 36 93/52 83 Mechanical Ventilator 90 98.5 05/31/18 00:00 90 18 00:00 93/52 05/30/18 23:45 135 36 87/43 82 Mechanical Ventilator 90 18/18 23:43 135 77/33 3/18/18 23:41 77/33 3/18/18 23:30 142 37 77/33 82 Mechanical Ventilator 90 18/18 23:09 144 38 90 18/18 23:00 145 38 80/57 93 Mechanical Ventilator 90 3/18/18 23:00 80/57 3/18/18 22:30 147 38 94/55 95 Mechanical Ventilator 90 3/18/18 22:00 108/56 3/18/18 22:00 149 38 108/56 93 Mechanical Ventilator 90 3/18/18 21:30 148 36 96/57 93 Mechanical Ventilator 90 3/18/18 21:21 104/61 3/18/18 21:15 147 35 104/49 86 Mechanical Ventilator 90 3/18/18 21:06 147 29 90 3/18/18 21:00 149 35 104/61 90 Mechanical Ventilator 90 3/18/18 21:00 104/61 3/18/18 20:45 86/51 3/18/18 20:45 147 34 86/51 83 Mechanical Ventilator 90 3/18/18 20:30 147 34 102/52 87 Mechanical Ventilator 90 3/18/18 20:15 87/49 3/18/18 20:15 148 35 87/49 96 Mechanical Ventilator 90 3/18/18 20:00 98.5 147 34 92/47 86 Mechanical Ventilator 90 98.5 3/18/18 20:00 90 3/18/18 20:00 92/47 3/18/18 19:45 147 34 100/63 88 Mechanical Ventilator 90 3/18/18 19:30 146 34 100/63 97 Mechanical Ventilator 90 3/18/18 19:06 83/42 3/18/18 19:03 149 3/18/18 19:00 149 33 100/52 96 Mechanical Ventilator 90 3/18/18 18:52 145 36 90 3/18/18 18:45 147 33 83/42 100 Mechanical Ventilator 90 3/18/18 18:40 145 76/46 3/18/18 18:30 145 33 76/46 99 Mechanical Ventilator 90 3/18/18 18:00 143 33 91/48 100 Mechanical Ventilator 90 3/18/18 17:31 98.3 3/18/18 17:30 98.3 151 35 102/59 90 Mechanical Ventilator 90 98.3 3/18/18 17:00 149 35 102/59 88 Mechanical Ventilator 90 3/18/18 16:54 82/59 3/18/18 16:38 153 38 90 3/18/18 16:32 101.0 3/18/18 16:30 148 35 82/59 88 Mechanical Ventilator 90 3/18/18 16:00 90 05/30/17 16:00 150 05/30/17 16:00 101.0 156 35 106/56 93 Mechanical Ventilator 90 101.0 05/30/17 15:30 150 35 85/47 92 Mechanical Ventilator 100 05/30/17 15:00 146 35 80/47 92 Mechanical Ventilator 100 05/30/17 14:48 146 35 90 05/30/17 14:30 145 34 81/56 93 Mechanical Ventilator 100 05/30/17 14:14 82/53 05/30/17 14:00 148 35 82/53 96 Mechanical Ventilator 100 05/30/17 13:30 155 36 83/55 96 Mechanical Ventilator 100 05/30/17 13:00 99.7 156 33 82/52 98 Mechanical Ventilator 100 99.7 05/30/17 12:40 156 36 100 05/30/17 12:30 156 33 82/50 98 Mechanical Ventilator 100 Intake and Output 05/30/17 05/31/17 19:00 07:00 Intake Total 1742.1 ml 4224.0 ml Output Total 430 ml 35 ml Balance 1312.1 ml 4189.0 ml Intake IV Total 1742.1 ml 4184.0 ml Other 40 ml Output Urine Total 430 ml 35 ml Laboratory Tests 05/30/17 19:00: Urine Random Sodium 27 05/31/17 01:06: Arterial Blood pH 6.997*L, Arterial Blood Partial Pressure CO2 22.4*L, Arterial Blood Partial Pressure O2 124.2H, Arterial Blood HCO3 5.4L, Arterial Blood Oxygen Saturation 96.8, Arterial Blood Base Excess -24.3, Dickson Test Positive 05/31/17 06:00: Urine Eosinophils None seen 05/31/17 07:50: Arterial Blood pH 6.880*L, Arterial Blood Partial Pressure CO2 29.9L, Arterial Blood Partial Pressure O2 198.3H, Arterial Blood HCO3 5.5L, Arterial Blood Oxygen Saturation 98.8H, Arterial Blood Base Excess -26.2, Dickson Test Positive 05/31/17 10:15: Sodium Level [Pending], Potassium Level [Pending], Chloride Level [Pending], Carbon Dioxide Level [Pending], Blood Urea Nitrogen [Pending], Creatinine [ Pending], Estimat Glomerular Filtration Rate [Pending], Glucose Level [Pending] , Hemoglobin A1c [Pending], Lactic Acid Level 17.30H, Uric Acid [Pending], Calcium Level [Pending], Phosphorus Level [Pending], Magnesium Level [Pending], Ferritin > 2000H, Total Bilirubin [Pending], Gamma Glutamyl Transpeptidase [ Pending], Aspartate Amino Transf (AST/SGOT) [Pending], Alanine Aminotransferase (ALT/SGPT) [Pending], Alkaline Phosphatase [Pending], Total Creatine Kinase [ Pending], Troponin I [Pending], Pro-B-Type Natriuretic Peptide [Pending], Total Protein [Pending], Albumin [Pending], Globulin [Pending], Triglycerides Level 42 , Cholesterol Level < 50, LDL Cholesterol 12, HDL Cholesterol 35L, Cholesterol/ HDL Ratio 1.4L, Vitamin B12 Level [Pending], Folate [Pending], Thyroid Stimulating Hormone (TSH) 3.529, Random Vancomycin Level [Pending] Height (Feet): 5 Height (Inches): 5.00 Weight (Pounds): 132 General Appearance: no apparent distress Cardiovascular: tachycardia Respiratory/Chest: decreased breath sounds Abdomen: distended Neurologic: unresponsive HEATHER YU May 31, 2017 12:30
[2017-05-31] MEDS ORDERED: PHENYLEPHRINE IV SCH (13:30)
[2017-05-31] MEDS ORDERED: D5W IV SCH (13:30)
[2017-05-31 13:59] LABS: HEMATOCRIT 19.5 % (42.0-52.0); MEAN CORPUSCULAR VOLUME 95 FL (80-99); RED BLOOD COUNT 2.05 M/UL (4.70-6.10); RED CELL DISTRIBUTION WIDTH 20.6 % (11.6-14.8); WHITE BLOOD COUNT 2.3 K/UL (4.8-10.8)
[2017-05-31 14:00] LABS: HEMOGLOBIN 5.6 G/DL (14.2-18.0); PLATELET COUNT 9 K/UL (150-450)
[2017-05-31] MEDS ORDERED: Sterile Water Irrig 1000ml IRRIG ONE (14:55)
[2017-05-31] MEDS ORDERED: Tubing IV Secondary IV ONE (14:55)
[2017-05-31] MEDS ORDERED: NS 275ml ONE (14:55)
[2017-05-31] MEDS ORDERED: Sodium Bicarbonate 50ml Carp ONE (14:55)
[2017-05-31] MEDS ORDERED: D5W 275ml ONE (14:55)
[2017-05-31] MEDS ORDERED: D5NS 1000ml IV ONE (14:55)
[2017-05-31 15:02] LABS: ALANINE AMINOTRANSFERASE 1316 U/L (12-78); ALBUMIN 0.6 G/DL (3.4-5.0); ALKALINE PHOSPHATASE 86 U/L (46-116); ANION GAP 27 mmol/L (5-15); BILIRUBIN,TOTAL 0.6 MG/DL (0.2-1.0); BLOOD UREA NITROGEN 34 mg/dL (7-18); CHLORIDE 101 MMOL/L (98-107); CHOLESTEROL < 50 MG/DL (< 200); CREATINE KINASE 4719 U/L (26-308); FERRITIN > 2000 NG/ML (8-388); GAMMA GLUTAMYL TRANSPEPTIDASE 54 U/L (5-85); HDL CHOLESTEROL 28 MG/DL (40-60); PHOSPHORUS 8.8 MG/DL (2.5-4.9); POTASSIUM 5.5 MMOL/L (3.5-5.1); SODIUM 135 MMOL/L (136-145); TRIGLYCERIDES 82 MG/DL (30-150)
[2017-05-31 15:17] LABS: CARBON DIOXIDE 8 MMOL/L (21-32)
[2017-05-31 15:18] LABS: ASPARTATE AMINO TRANSFERASE > 10000 U/L (15-37)
--- NOTE | 2017-06-01 13:24 | Discharge Summary ---
Discharge Summary Hospital Course Date of Admission May 29, 2017 at 23:00 Date of Discharge May 31, 2017 at 14:56 Admitting Diagnosis septic shock HPI For Artie Jauregui is a 71 year old male who was admitted on May 29, 2017 at 23:00 for Septic Shock Hospital Course summary #[id number] Discharge Discharge Disposition Patient Discharge Diagnoses: Discharge Instructions Discharge Instructions Special Instructions I have been assigned to complete a D/C Summary on this account. I was not involved in the patient management Lissett Tamez NP (Vanchtein) Jun 01, 2017 13:24
--- NOTE | 2017-06-01 17:58 | Cardiology Report ---
APPROVED REPORT EXAM: Two-dimensional and M-mode echocardiogram with Doppler and color Doppler. INDICATION Left Ventricular Function M-Mode DIMENSIONS IVSd1.0 (0.7-1.1cm)Left Atrium (MM)3.1 (1.6-4.0cm) LVDd4.3 (3.5-5.6cm)Aortic Root2.8 (2.0-3.7cm) PWd0.9 (0.7-1.1cm)Aortic Cusp Exc.1.6 (1.5-2.0cm) LVDs3.2 (2.5-4.0cm) PWs1.0 cm Normal left ventricular chamber size. Global left ventricular hypokinesis. Left ventricular ejection fraction estimated to be 40-45 %. No evidence of left ventricular hypertrophy. Large pleural effusion. All other cardiac chamber sizes are within normal limits. Focal aortic valve sclerosis with adequate cusp excursion. Thickened mitral valve leaflets with normal excursion. Mild mitral annulus and aortic root calcification. Pulmonic valve not well visualized. Normal tricuspid valve structure. IVC measures at 1.7 cm with physiological collapse. A color flow and spectral Doppler study was performed and revealed: Mild aortic insufficiency. Mild mitral regurgitation. Mitral diastolic velocities suggest mild left ventricular diastolic dysfunction (Grade I). Mild tricuspid regurgitation. Tricuspid systolic velocities suggests peak right ventricular systolic pressure of 41 mmHg, consistent with mild pulmonary hypertension. Trace pulmonic regurgitation present.
--- NOTE | 2017-06-01 18:43 | Cardiology Report ---
APPROVED REPORT EKG Measurement Heart [id number] AL 160P [id number] Sinus tachycardia with premature atrial complexes Otherwise normal ECG
--- NOTE | 2017-06-01 23:46 | Discharge Summary 2 SIG ---
SUMMARY DATE OF ADMISSION: DATE OF EXPIRATION 05/31/2017 REASON FOR ADMISSION: 71-year-old male with past medical history of hypertension and nasopharyngeal cancer, on chemotherapy with the last one about a week ago, presented for evaluation for fever for three days. Per family, the patient was confused and altered. Upon evaluation in the emergency room, the patient was found to be altered, febrile, tachycardic, and hypotensive. Central line was placed. The patient was emergently orally intubated and transferred to ICU for further management. WBC -0.9, hemoglobin -8.5, hematocrit- 27.2, and platelets -172,000. Potassium- 2.9. BUN- 31, creatinine- 2.0, and glucose- 56. LFT within normal limits. Troponin slightly elevated - 0.059. INR -1.5. Pro BNP -1345. Urinalysis with possible evidence of urinary tract infection. Chest x-ray findings could not exclude multifocal pneumonia. Influenza screen test was positive for influenza B. Subsequently, the patient undergone CTA of the chest, which revealed no evidence of pulmonary embolism or thoracic aortic dissection. Dense airspace consolidation involving almost all of the left lower lobe with additional scattered bilateral areas of airspace consolidation and some scattered nodular opacities were noted. Per radiology, findings may represent multifocal pneumonia or massive pulmonary metastases, and a consolidated lung was not excluded, especially given history of malignancy. EKG showed sinus tachycardia. No acute ischemic changes. ADMITTING DIAGNOSES: 1. Acute respiratory failure, required intubation. 2. Septic shock. 3. Influenza B. 4. Pneumonia. 5. Neutropenic fever. 6. Metastatic cancer, on chemotherapy. 7. Severe protein-calorie malnutrition. 8. Acute renal failure. HOSPITAL COURSE: The patient was admitted to ICU. Ventilator support provided. Pulmonary toilet provided. The patient was followed up with chest x-ray and ABG. Urine culture negative. Blood culture negative. Chest x-ray with worsening pneumonia. ABG with worsening acidosis. Initial lactic acid -17.3. Patient was on pressor for hemodynamic support to keep mean arterial pressure above 65. The patient was on Levophed. The patient was on IV antibiotic as per ID recommendation as well as the antifungal and Tamiflu. The patient was on the droplet isolation. DVT and GI prophylaxes provided. According to ID, antifungal were added because the last CT of the neck revealed possibility of fungal infection. She recommended to repeat CT of the sinuses to reevaluate sinus disease and since there was a suggestion of possible fungal disease on prior CT, fungal serology was ordered. Antibiotic regimen optimized as by ID specialist. Bowel regimen instituted. Manufacturing Test Technician closely followed. Renal parameters were closely monitored. Nephrotoxics were avoided. Electrolytes were corrected as needed. The patient's overall condition remained poor and worsened steadily. The patient was Full Code. On 05/31/2017, potassium was 5.5 and CO2 of 8. Troponin elevated to 0.88, likely due to renal failure. Creatinine up to 4 from initial 2 and BUN up to 34 from initial 31. The patient also exhibited anemia with hemoglobin -5.6, hematocrit -19.5, and platelets 9000. Lactic acid up to 23.3. CK up to 4719. Evidence of shock liver with AST of more than 10,000 and ALT 1316. The patient demonstrated evidence of multiorgan failure including respiratory, renal, cardiac, hematological (severe anemia, thrombocytopenia) , rhabdomyolysis and GI( shock liver) system involvement on underlying metastatic cancer. Code Blue was called at 10:05a.m. on 05/31/2017 since the patient was found to be in asystole. Outcome was successful with return of spontaneous circulation. Code was called additional two times with successful outcomes. The fourth time when the Code Blue was called, outcome was unsuccessful. Unable to revive the patient. The patient was pronounced at 14:56 on 05/31/2017. CAUSE OF : Cardiopulmonary arrest. FINAL DIAGNOSES: 1. Status post cardiopulmonary arrest x4. 2. Acute respiratory failure requiring intubation. 3. Septic shock secondary to influenza type B and pneumonia. 4. Pneumonia. 5. Neutropenic fever. 6. Metastatic cancer (on chemotherapy). 7. Influenza B. 8. Acute renal failure 9. Multiorgan failure. 10. Metabolic/lactic acidosis. 11. Severe protein-calorie malnutrition. Sanju Mahajan M.D. I have been assigned to dictate discharge summary on this account and I was not involved in the patient's management. Lissett Tamez N.P. (Vanchtein) DR: [email or web address] JOB#: [id number] CC: ALEX
== END 2017-05-31 14:56 | disposition expired | DRG 871 ==
LOC: EDBD 19:24 → EMR 19:57 → ICU 23:00 → EDBEDREQ 05-30 01:30 → ICU 05-30 04:17
PROC: 06HM33Z Insertion of Infusion Device into Right Femoral Vein, Percutaneous Approach (ICD-10-PCS; principal; 2017-05-29)
PROC: 5A1945Z Respiratory Ventilation, 24-96 Consecutive Hours (ICD-10-PCS; principal; 2017-05-29)
PROC: 0BH17EZ Insertion of Endotracheal Airway into Trachea, Via Natural or Artificial Opening (ICD-10-PCS; principal; 2017-05-29)
PROC: 5A12012 Performance of Cardiac Output, Single, Manual (ICD-10-PCS; 2017-05-31)
DX: A41.9 Sepsis, unspecified organism (principal); J96.00 Acute respiratory failure, unspecified whether with hypoxia or hypercapnia; K72.00 Acute and subacute hepatic failure without coma; R65.21 Severe sepsis with septic shock; E43 Unspecified severe protein-calorie malnutrition; J10.00 Influenza due to other identified influenza virus with unspecified type of pneumonia; N17.9 Acute kidney failure, unspecified; C79.9 Secondary malignant neoplasm of unspecified site; D69.6 Thrombocytopenia, unspecified; C11.9 Malignant neoplasm of nasopharynx, unspecified; R50.81 Fever presenting with conditions classified elsewhere; J10.1 Influenza due to other identified influenza virus with other respiratory manifestations; D70.9 Neutropenia, unspecified; I46.9 Cardiac arrest, cause unspecified; J44.9 Chronic obstructive pulmonary disease, unspecified; Z79.899 Other long term (current) drug therapy
CPT/HCPCS: 36415; 36600; 71045; 71275; 80053; 80061; 80202; 81003; 82248; 82550; 82553; 82607; 82728; 82746; 82803; 82962; 82977; 83036; 83605; 83615; 83690; 83735; 83880; 84100; 84300; 84443; 84478; 84484; 84550; 85007; 85025; 85060; 85610; 85730; 86140; 86710; 87040; 87081; 87086; 87385; 89050; 92950; 93005; 93306; 94002; 94003; 99291; J0171; J0289; J2370; J2405